=== PATIENT | female | born 1970 | race Hispanic/Latino ===

== ENCOUNTER 2017-10-14 12:32 | Inpatient (IN) | payer OTHER ==
[~2017-10-14] VITALS: Ht 160 cm; Wt 112.0 kg
[2017-10-14 12:57] LABS: BASOPHILS % (AUTO) 0.5 % (0.0-5.0); EOSINOPHILS % (AUTO) 0.7 % (0.0-8.0); HEMATOCRIT 30.1 % (36-48); MEAN CORPUSCULAR HEMOGLOBIN 31.5 pg (27.0-33.0); MEAN CORPUSCULAR HGB CONC 33.6 g/dL (32.0-36.0); MEAN CORPUSCULAR VOLUME 93.6 fL (79-99); MONOCYTES % (AUTO) 7.4 % (3.0-13.0); NEUTROPHILS % (AUTO) 82.3 % (40.0-77.0); PLATELET COUNT (AUTO) 303 K/uL (130-400); RED BLOOD CELL COUNT(AUTO) 3.21 MIL/uL (4.00-5.50); RED CELL DISTRIBUTION WIDTH 12.7 % (11.0-15.5)
[2017-10-14 13:04] LABS: LYMPHOCYTES % (AUTO) 9.1 % (21.0-51.0)
[2017-10-14 13:11] LABS: POTASSIUM 4.6 mmol/L (3.5-5.1)
[2017-10-14 13:16] LABS: APPEARANCE,URINE CLEAR (CLEAR); BILIRUBIN,URINE NEGATIVE (NEGATIVE); COLOR,URINE YELLOW (YELLOW); GLUCOSE, URINE (UA) NEGATIVE (NEGATIVE); KETONES,URINE NEGATIVE (NEGATIVE); LEUKOCYTE ESTERASE ,URINE NEGATIVE (NEGATIVE); NITRATE,URINE NEGATIVE (NEGATIVE); OCCULT BLOOD,URINE TRACE-LYSED (NEGATIVE); PH,URINE 5.5 (5.0-8.0); PROTEIN,URINE 100 (NEGATIVE); UROBILINOGEN,URINE 0.2 mg/dL (0.2-1.0)
[2017-10-14 13:16] LABS: ALBUMIN 2.4 g/dL (3.5-5.0); BILIRUBIN,TOTAL 0.2 mg/dL (0.2-1.0); TOTAL PROTEIN, SERUM 8.7 g/dL (6.0-8.3)
[2017-10-14 13:24] LABS: BACTERIA,URINE Rare /HPF (None Seen); RBC,URINE 0-1 /HPF (0-1); SQUAMOUS EPITHELIAL CELL,UR Few /LPF (0-2); WBC,URINE 0-1 /HPF (0-1)
[2017-10-14] MEDS ORDERED: AMPICILLIN SODIUM/SULBACTAM NA 1.5GM VIAL ONE (13:34)
[2017-10-14] MEDS ORDERED: VANCOMYCIN 1GM+NS 250ML 250 ML IV ONE (13:43)
[2017-10-14] MEDS ORDERED: TETANUS/DIPHTHERIA TOXOID [ADULT] 0.5 ML VIAL IM ONE (13:44)
[2017-10-14 15:21] VITALS: BP 165/67
[2017-10-14] MEDS ORDERED: ACETAMINOPHEN 325 MG TAB PO PRN (15:30)
[2017-10-14] MEDS ORDERED: HYDRALAZINE HCL 20 MG/ML VIAL IV PRN (15:30)
[2017-10-14] MEDS ORDERED: ONDANSETRON HCL 4 MG/2 ML VIAL IVP PRN (15:30)
[2017-10-14] MEDS: INSULIN HUMULIN R 100 UNIT/ML 3ML SQ SCH ×2 (16:30→21:00)
[2017-10-14] MEDS ORDERED: FURO40TA5 PO (16:34)
[2017-10-14] MEDS ORDERED: ASPI-1005 PO (16:34)
[2017-10-14] MEDS ORDERED: LISI-617 PO (16:34)
[2017-10-14] MEDS ORDERED: ATOR20TA65 PO (16:34)
[2017-10-14] MEDS ORDERED: CARV12.511 PO (16:34)
[2017-10-14] MEDS ORDERED: METF10004 PO (16:34)
[2017-10-14] MEDS ORDERED: SPIR25TA4 PO (16:34)
[2017-10-14] MEDS ORDERED: COMPOUND IV REFRIGERATED 1 EACH IVSOLN MISC PRN (17:00)
[2017-10-14] MEDS ORDERED: VANCOMYCIN PROTOCOL PER PHARMACY IV SCH (17:00)
[2017-10-14] MEDS: SODIUM CHLORIDE 0.9% 1000ML 1,000 ML IV SCH (17:30)
[2017-10-14] MEDS: MORPHINE SULFATE 2 MG/ML 1ML SYG IVP PRN ×2 (17:39→21:49)
[2017-10-14] MEDS: UNASYN 1.5GM+NS 100ML 100 ML IV SCH (18:35)
[2017-10-14 19:00] VITALS: BP 134/67
[2017-10-14 23:00] VITALS: BP 143/74
[2017-10-15] VITALS (21 sets, daily range): BP systolic 131–161; BP diastolic 53–85
[2017-10-15] MEDS: UNASYN 1.5GM+NS 100ML 100 ML IV SCH ×2 (00:21→05:56)
[2017-10-15] MEDS: MORPHINE SULFATE 2 MG/ML 1ML SYG IVP PRN ×3 (02:49→21:53)
[2017-10-15 05:41] LABS: BASOPHILS % (AUTO) 0.7 % (0.0-5.0); EOSINOPHILS % (AUTO) 1.7 % (0.0-8.0); HEMATOCRIT 26.9 % (36-48); LYMPHOCYTES % (AUTO) 14.7 % (21.0-51.0); MEAN CORPUSCULAR HEMOGLOBIN 31.9 pg (27.0-33.0); MEAN CORPUSCULAR HGB CONC 33.9 g/dL (32.0-36.0); MEAN CORPUSCULAR VOLUME 94.1 fL (79-99); MONOCYTES % (AUTO) 8.6 % (3.0-13.0); NEUTROPHILS % (AUTO) 74.3 % (40.0-77.0); PLATELET COUNT (AUTO) 278 K/uL (130-400); RED BLOOD CELL COUNT(AUTO) 2.86 MIL/uL (4.00-5.50); RED CELL DISTRIBUTION WIDTH 12.3 % (11.0-15.5); WHITE BLOOD COUNT (AUTO) 15.4 K/uL (4.8-10.8)
[2017-10-15 05:56] LABS: CREATININE 1.8 mg/dL (0.5-1.5); MAGNESIUM 1.8 mg/dL (1.80-2.40); POTASSIUM 4.4 mmol/L (3.5-5.1)
[2017-10-15] MEDS ORDERED: BUPIVACAINE/PF 0.5% 30ML VIAL ONE (06:11)
[2017-10-15] MEDS ORDERED: LIDOCAINE HCL 1% 20 ML VIAL ONE (06:11)
[2017-10-15 06:17] LABS: HEMOGLOBIN A1C 7.2 % (4.0-6.0)
[2017-10-15] MEDS: INSULIN HUMULIN R 100 UNIT/ML 3ML SQ SCH ×4 (06:47→21:00)
[2017-10-15] MEDS ORDERED: KETAMINE HCL 100 MG/ML 5ML VIAL IJ ONE (06:50)
[2017-10-15] MEDS ORDERED: MIDAZOLAM HCL 1 MG/ML 2ML VIAL ONE (06:58)
[2017-10-15] MEDS ORDERED: PROPOFOL 10 MG/ML 20ML VIAL IV ONE ×2 (06:59→08:14)
[2017-10-15] MEDS ORDERED: CEFEPIME 1GM+NS 50ML 50 ML IV SCH (09:00)
[2017-10-15] MEDS: PANTOPRAZOLE SODIUM 40 MG TABLET.DR PO SCH (09:32)
[2017-10-15] MEDS: VANCOMYCIN 1.5 GM in SODIUM CHLORIDE 0.9% 250 ML IV SCH (09:32)
[2017-10-15] MEDS: ENOXAPARIN SODIUM 30 MG/0.3 ML SQ SCH (09:32)
[2017-10-15] MEDS: CEFEPIME HCL 1 GM VIAL IVP SCH ×2 (09:32→17:05)
[2017-10-15] MEDS ORDERED: HYDROMORPHONE 1 MG/1 ML AMP IVP PRN (09:45)
[2017-10-15] MEDS: SODIUM CHLORIDE 0.9% 1000ML 1,000 ML IV SCH (11:39)
[2017-10-15] MEDS ORDERED: VANCOMYCIN HCL 1 GM VIAL IV SCH (13:30)
[2017-10-15] MEDS ORDERED: HYDROMORPHONE HCL 2 MG/ML VIAL IVP PRN (15:47)
[2017-10-16] VITALS (7 sets, daily range): BP systolic 149–207; BP diastolic 73–85
[2017-10-16] MEDS: CEFEPIME HCL 1 GM VIAL IVP SCH ×3 (00:55→17:36)
[2017-10-16] MEDS: MORPHINE SULFATE 2 MG/ML 1ML SYG IVP PRN ×2 (02:47→18:07)
[2017-10-16] MEDS: INSULIN HUMULIN R 100 UNIT/ML 3ML SQ SCH ×3 (06:33→21:00)
[2017-10-16] MEDS: SODIUM CHLORIDE 0.9% 1000ML 1,000 ML IV SCH (06:46)
[2017-10-16] MEDS: ENOXAPARIN SODIUM 30 MG/0.3 ML SQ SCH (09:10)
[2017-10-16] MEDS: VANCOMYCIN 1.5 GM in SODIUM CHLORIDE 0.9% 250 ML IV SCH (09:10)
[2017-10-16] MEDS: PANTOPRAZOLE SODIUM 40 MG TABLET.DR PO SCH (09:10)
[2017-10-17] VITALS: BP 144/70
[2017-10-17] MEDS: CEFEPIME HCL 1 GM VIAL IVP SCH ×3 (01:03→16:55)
[2017-10-17] MEDS: MORPHINE SULFATE 2 MG/ML 1ML SYG IVP PRN ×4 (01:09→23:36)
[2017-10-17] MEDS: SODIUM CHLORIDE 0.9% 1000ML 1,000 ML IV SCH ×2 (01:15→03:36)
[2017-10-17 04:00] VITALS: BP 142/68
[2017-10-17 04:33] LABS: HEMATOCRIT 26.9 % (36-48); MEAN CORPUSCULAR HEMOGLOBIN 31.2 pg (27.0-33.0); MEAN CORPUSCULAR HGB CONC 33.2 g/dL (32.0-36.0); MEAN CORPUSCULAR VOLUME 93.8 fL (79-99); PLATELET COUNT (AUTO) 279 K/uL (130-400); RED BLOOD CELL COUNT(AUTO) 2.86 MIL/uL (4.00-5.50); RED CELL DISTRIBUTION WIDTH 12.3 % (11.0-15.5); WHITE BLOOD COUNT (AUTO) 13.6 K/uL (4.8-10.8)
[2017-10-17 04:51] LABS: CREATININE 1.6 mg/dL (0.5-1.5); POTASSIUM 4.4 mmol/L (3.5-5.1)
[2017-10-17] MEDS: INSULIN HUMULIN R 100 UNIT/ML 3ML SQ SCH ×4 (05:22→21:00)
[2017-10-17] MEDS: PANTOPRAZOLE SODIUM 40 MG TABLET.DR PO SCH (08:58)
[2017-10-17] MEDS: VANCOMYCIN 1.5 GM in SODIUM CHLORIDE 0.9% 250 ML IV SCH (08:58)
[2017-10-17] MEDS: ENOXAPARIN SODIUM 30 MG/0.3 ML SQ SCH (08:59)
[2017-10-17 11:40] VITALS: BP 154/72
[2017-10-17 16:00] VITALS: BP 153/75
[2017-10-17 19:29] VITALS: BP 156/71
[2017-10-17] MEDS: ATORVASTATIN CALCIUM 20 MG TABLET PO SCH (23:32)
[2017-10-17] MEDS: CARVEDILOL 12.5 MG TABLET PO SCH (23:33)
[2017-10-17 23:52] VITALS: BP 140/72
[2017-10-18] MEDS: SODIUM CHLORIDE 0.9% 1000ML 1,000 ML IV SCH ×4 (00:33→19:46)
[2017-10-18] MEDS: CEFEPIME HCL 1 GM VIAL IVP SCH ×2 (03:35→10:28)
[2017-10-18 04:25] VITALS: BP 155/73
[2017-10-18 05:25] LABS: BASOPHILS % (AUTO) 0.5 % (0.0-5.0); EOSINOPHILS % (AUTO) 2.4 % (0.0-8.0); HEMATOCRIT 25.1 % (36-48); LYMPHOCYTES % (AUTO) 13.2 % (21.0-51.0); MEAN CORPUSCULAR HEMOGLOBIN 32.7 pg (27.0-33.0); MEAN CORPUSCULAR HGB CONC 34.9 g/dL (32.0-36.0); MEAN CORPUSCULAR VOLUME 93.9 fL (79-99); MONOCYTES % (AUTO) 6.9 % (3.0-13.0); PLATELET COUNT (AUTO) 300 K/uL (130-400); RED BLOOD CELL COUNT(AUTO) 2.67 MIL/uL (4.00-5.50); RED CELL DISTRIBUTION WIDTH 12.6 % (11.0-15.5)
[2017-10-18 05:41] LABS: CREATININE 1.6 mg/dL (0.5-1.5); POTASSIUM 4.3 mmol/L (3.5-5.1)
[2017-10-18] MEDS: MORPHINE SULFATE 2 MG/ML 1ML SYG IVP PRN (06:50)
[2017-10-18] MEDS: INSULIN HUMULIN R 100 UNIT/ML 3ML SQ SCH ×4 (06:51→21:00)
[2017-10-18 08:00] VITALS: BP 152/69
[2017-10-18 10:19] LABS: INR 0.94 (0.85-1.15); PROTHROMBIN TIME 9.9 SEC (9.6-11.6)
[2017-10-18] MEDS: ASPIRIN 81MG TAB.CHEW PO SCH (10:26)
[2017-10-18] MEDS: CARVEDILOL 12.5 MG TABLET PO SCH ×2 (10:26→20:56)
[2017-10-18] MEDS: ENOXAPARIN SODIUM 30 MG/0.3 ML SQ SCH (10:27)
[2017-10-18] MEDS: PANTOPRAZOLE SODIUM 40 MG TABLET.DR PO SCH (10:27)
[2017-10-18] MEDS: VANCOMYCIN 1.5 GM in SODIUM CHLORIDE 0.9% 250 ML IV SCH (10:28)
[2017-10-18 11:00] VITALS: BP 151/75
[2017-10-18 16:00] VITALS: BP 165/76
[2017-10-18] MEDS: HYDROCODONE/ACETAMINOPHEN 5/325 MG TAB PO PRN (16:28)
[2017-10-18] MEDS: LEVOFLOXACIN 750 MG TABLET PO SCH (18:34)
[2017-10-18 20:00] VITALS: BP 150/75
[2017-10-18] MEDS: ATORVASTATIN CALCIUM 20 MG TABLET PO SCH (20:56)
[2017-10-18] MEDS: LACTULOSE 20 GM/30 ML UDCUP PO PRN (21:23)
[2017-10-19] VITALS (22 sets, daily range): BP systolic 104–176; BP diastolic 49–105
[2017-10-19] MEDS: SODIUM CHLORIDE 0.9% 1000ML 1,000 ML IV SCH ×2 (03:54→05:09)
[2017-10-19] MEDS: INSULIN HUMULIN R 100 UNIT/ML 3ML SQ SCH ×4 (06:33→20:20)
[2017-10-19 08:00] LABS: HEMATOCRIT 26.9 % (36-48); MEAN CORPUSCULAR HGB CONC 33.2 g/dL (32.0-36.0); MEAN CORPUSCULAR VOLUME 93.6 fL (79-99); PLATELET COUNT (AUTO) 327 K/uL (130-400); RED BLOOD CELL COUNT(AUTO) 2.88 MIL/uL (4.00-5.50); RED CELL DISTRIBUTION WIDTH 12.6 % (11.0-15.5); WHITE BLOOD COUNT (AUTO) 12.9 K/uL (4.8-10.8)
[2017-10-19 08:08] LABS: CREATININE 1.4 mg/dL (0.5-1.5); POTASSIUM 4.5 mmol/L (3.5-5.1)
[2017-10-19 08:27] LABS: EOSINOPHILS % (MANUAL) 3 % (1-6); LYMPHOCYTES % (MANUAL) 15 % (22-44); MAN.DIFF COMMENT-IMPRESSION MANUAL DIFFERENTIAL; MONOCYTES % (MANUAL) 2 % (2-9); PLATELET MORPHOLOGY COMMENT ADEQUATE; SEGMENTED NEUTROPHILS % 80 % (40-70)
[2017-10-19] MEDS: ENOXAPARIN SODIUM 30 MG/0.3 ML SQ SCH (08:28)
[2017-10-19] MEDS: ASPIRIN 81MG TAB.CHEW PO SCH (08:28)
[2017-10-19] MEDS: PANTOPRAZOLE SODIUM 40 MG TABLET.DR PO SCH (09:00)
[2017-10-19] MEDS: CARVEDILOL 12.5 MG TABLET PO SCH ×2 (09:26→20:19)
[2017-10-19] MEDS ORDERED: LIDOCAINE HCL 2% 20ML ONE (12:21)
[2017-10-19] MEDS ORDERED: HEPARIN SODIUM 1000UNIT/ML 10ML VIAL ONE ×2 (12:21→13:19)
[2017-10-19] MEDS ORDERED: NITROGLYCERIN 5 MG/ML 10 ML VIAL IV ONE (12:21)
[2017-10-19] MEDS ORDERED: ISOVUE-300 100 ML VIAL IV ONE ×2 (12:21→13:23)
[2017-10-19] MEDS ORDERED: MORPHINE SULFATE 2 MG/ML 1ML SYG ONE (13:51)
[2017-10-19] MEDS ORDERED: LABETALOL HCL 5 MG/ML 20ML VIAL IV ONE (13:54)
[2017-10-19] MEDS ORDERED: ASPIRIN 325MG EC TAB 325 MG TABLET.DR PO ONE (13:56)
[2017-10-19] MEDS ORDERED: CLOPIDOGREL BISULFATE 300 MG TAB ONE (13:56)
[2017-10-19] MEDS ORDERED: NICARDIPINE HCL 25 MG/10 ML ML IV ONE (13:57)
[2017-10-19] MEDS ORDERED: SODIUM CHLORIDE 0.9% 1000ML 1,000 ML IV SCH (14:02)
[2017-10-19] MEDS ORDERED: NITROGLYCERIN 50 MG/D5% WATER 1 BOT IV PRN (14:15)
[2017-10-19] MEDS ORDERED: CLOPIDOGREL BISULFATE 300 MG TAB PO SCH (14:15)
[2017-10-19] MEDS: MORPHINE SULFATE 2 MG/ML 1ML SYG IVP PRN (16:01)
[2017-10-19] MEDS ORDERED: NICARDIPINE HCL 100 MG in SODIUM CHLORIDE 0.9% 60 ML IV SCH (16:45)
[2017-10-19] MEDS: LISINOPRIL 10 MG TABLET PO SCH (20:18)
[2017-10-19] MEDS: HYDROCODONE/ACETAMINOPHEN 5/325 MG TAB PO PRN (20:19)
[2017-10-19] MEDS: ATORVASTATIN CALCIUM 20 MG TABLET PO SCH (20:19)
[2017-10-20] VITALS (12 sets, daily range): BP systolic 108–160; BP diastolic 49–78
[2017-10-20 03:43] LABS: HEMATOCRIT 25.3 % (36-48); MEAN CORPUSCULAR HEMOGLOBIN 32.5 pg (27.0-33.0); MEAN CORPUSCULAR HGB CONC 34.8 g/dL (32.0-36.0); MEAN CORPUSCULAR VOLUME 93.2 fL (79-99); PLATELET COUNT (AUTO) 322 K/uL (130-400); RED BLOOD CELL COUNT(AUTO) 2.71 MIL/uL (4.00-5.50); RED CELL DISTRIBUTION WIDTH 12.5 % (11.0-15.5); WHITE BLOOD COUNT (AUTO) 13.9 K/uL (4.8-10.8)
[2017-10-20 04:00] LABS: CREATININE 1.5 mg/dL (0.5-1.5); POTASSIUM 4.6 mmol/L (3.5-5.1)
[2017-10-20] MEDS: INSULIN HUMULIN R 100 UNIT/ML 3ML SQ SCH ×4 (05:20→21:00)
[2017-10-20] MEDS: ASPIRIN 81MG TAB.CHEW PO SCH ×2 (09:00→09:14)
[2017-10-20] MEDS: PANTOPRAZOLE SODIUM 40 MG TABLET.DR PO SCH (09:13)
[2017-10-20] MEDS: LISINOPRIL 10 MG TABLET PO SCH ×2 (09:14→22:50)
[2017-10-20] MEDS: CLOPIDOGREL BISULFATE 75 MG TAB PO SCH (09:14)
[2017-10-20] MEDS: CARVEDILOL 12.5 MG TABLET PO SCH ×2 (09:15→22:49)
[2017-10-20] MEDS: ENOXAPARIN SODIUM 30 MG/0.3 ML SQ SCH (09:18)
[2017-10-20] MEDS: LEVOFLOXACIN 750 MG TABLET PO SCH (17:11)
[2017-10-20] MEDS: HYDROCODONE/ACETAMINOPHEN 5/325 MG TAB PO PRN (17:12)
[2017-10-20] MEDS ORDERED: SODIUM CHLORIDE 0.9% 1000ML 1,000 ML IV PRN (19:45)
[2017-10-20] MEDS ORDERED: 0.9% SODIUM CHLORIDE 250 ML IV BAG IV PRN (19:45)
[2017-10-20] MEDS ORDERED: ALBUMIN (HUMAN) 25% 100 ML IV PRN (19:45)
[2017-10-20] MEDS: ATORVASTATIN CALCIUM 20 MG TABLET PO SCH (22:48)
[2017-10-20] MEDS: MORPHINE SULFATE 2 MG/ML 1ML SYG IVP PRN (23:00)
[2017-10-21] VITALS (22 sets, daily range): BP systolic 131–175; BP diastolic 51–81
[2017-10-21 03:48] LABS: HEMATOCRIT 24.2 % (36-48); MEAN CORPUSCULAR HEMOGLOBIN 31.6 pg (27.0-33.0); MEAN CORPUSCULAR HGB CONC 34.2 g/dL (32.0-36.0); MEAN CORPUSCULAR VOLUME 92.6 fL (79-99); PLATELET COUNT (AUTO) 315 K/uL (130-400); RED BLOOD CELL COUNT(AUTO) 2.62 MIL/uL (4.00-5.50); RED CELL DISTRIBUTION WIDTH 12.5 % (11.0-15.5); WHITE BLOOD COUNT (AUTO) 12.6 K/uL (4.8-10.8)
[2017-10-21 04:06] LABS: ALBUMIN 1.8 g/dL (3.5-5.0); BILIRUBIN,TOTAL 0.2 mg/dL (0.2-1.0); CREATININE 1.7 mg/dL (0.5-1.5); POTASSIUM 4.3 mmol/L (3.5-5.1); TOTAL PROTEIN, SERUM 7.2 g/dL (6.0-8.3)
[2017-10-21] MEDS: INSULIN HUMULIN R 100 UNIT/ML 3ML SQ SCH ×4 (06:05→20:32)
[2017-10-21] MEDS: ASPIRIN 81MG TAB.CHEW PO SCH ×2 (09:00→13:30)
[2017-10-21] MEDS ORDERED: LIDOCAINE HCL 1% 20 ML VIAL ONE (09:01)
[2017-10-21] MEDS ORDERED: BUPIVACAINE/PF 0.5% 30ML VIAL ONE (09:01)
[2017-10-21] MEDS ORDERED: SUCCINYLCHOLINE 200MG/10ML SYR ONE ×2 (09:25→10:16)
[2017-10-21] MEDS ORDERED: LIDOCAINE PF 2% 5ML ABBOJECT ONE (09:25)
[2017-10-21] MEDS ORDERED: GLYCOPYRROLATE 0.2 MG/ML 5 ML VIAL ONE (09:25)
[2017-10-21] MEDS ORDERED: ONDANSETRON HCL 4 MG/2 ML VIAL ONE ×2 (09:25→10:16)
[2017-10-21] MEDS ORDERED: DEXAMETHASONE SOD PHOSPHATE 10MG/ML 1ML VIAL ONE ×2 (09:25→10:16)
[2017-10-21] MEDS ORDERED: MIDAZOLAM HCL 1 MG/ML 2ML VIAL ONE (09:26)
[2017-10-21] MEDS ORDERED: FENTANYL CITRATE PF 50 MCG/1 ML 2ML VIAL ONE ×2 (09:26→10:25)
[2017-10-21] MEDS ORDERED: PROPOFOL 10 MG/ML 20ML VIAL IV ONE (09:26)
[2017-10-21] MEDS ORDERED: ROCURONIUM BROMIDE 10MG/1ML 5ML VL ONE (10:16)
[2017-10-21] MEDS: PANTOPRAZOLE SODIUM 40 MG TABLET.DR PO SCH (13:31)
[2017-10-21] MEDS: LISINOPRIL 10 MG TABLET PO SCH ×2 (13:31→20:29)
[2017-10-21] MEDS: CARVEDILOL 12.5 MG TABLET PO SCH ×2 (13:31→20:30)
[2017-10-21] MEDS: CLOPIDOGREL BISULFATE 75 MG TAB PO SCH (13:31)
[2017-10-21] MEDS: ENOXAPARIN SODIUM 30 MG/0.3 ML SQ SCH (13:36)
[2017-10-21] MEDS: HYDROMORPHONE 1 MG/1 ML AMP IVP PRN (19:54)
[2017-10-21] MEDS: ATORVASTATIN CALCIUM 20 MG TABLET PO SCH (20:29)
[2017-10-22] MEDS: HYDROMORPHONE 1 MG/1 ML AMP IVP PRN (01:20)
[2017-10-22 04:00] VITALS: BP 149/73
[2017-10-22 04:08] LABS: HEMATOCRIT 23.9 % (36-48); MEAN CORPUSCULAR HGB CONC 33.7 g/dL (32.0-36.0); PLATELET COUNT (AUTO) 305 K/uL (130-400); RED BLOOD CELL COUNT(AUTO) 2.59 MIL/uL (4.00-5.50); RED CELL DISTRIBUTION WIDTH 12.7 % (11.0-15.5); WHITE BLOOD COUNT (AUTO) 19.3 K/uL (4.8-10.8)
[2017-10-22 04:30] LABS: ALBUMIN 2.1 g/dL (3.5-5.0); BILIRUBIN,TOTAL 0.2 mg/dL (0.2-1.0); CREATININE 1.5 mg/dL (0.5-1.5); POTASSIUM 4.6 mmol/L (3.5-5.1); TOTAL PROTEIN, SERUM 7.5 g/dL (6.0-8.3)
[2017-10-22] MEDS: INSULIN HUMULIN R 100 UNIT/ML 3ML SQ SCH ×3 (06:12→17:16)
[2017-10-22 07:37] VITALS: BP 149/69
[2017-10-22] MEDS: ASPIRIN 81MG TAB.CHEW PO SCH ×2 (08:32→08:35)
[2017-10-22] MEDS: LISINOPRIL 10 MG TABLET PO SCH ×2 (08:32→20:20)
[2017-10-22] MEDS: CARVEDILOL 12.5 MG TABLET PO SCH ×2 (08:32→20:20)
[2017-10-22] MEDS: PANTOPRAZOLE SODIUM 40 MG TABLET.DR PO SCH (08:32)
[2017-10-22] MEDS: CLOPIDOGREL BISULFATE 75 MG TAB PO SCH (08:32)
[2017-10-22] MEDS: ENOXAPARIN SODIUM 30 MG/0.3 ML SQ SCH (08:35)
[2017-10-22] MEDS: HYDROCODONE/ACETAMINOPHEN 5/325 MG TAB PO PRN (10:52)
[2017-10-22 11:37] VITALS: BP 149/61
[2017-10-22 16:11] VITALS: BP 132/56
[2017-10-22] MEDS: LEVOFLOXACIN 750 MG TABLET PO SCH (17:20)
[2017-10-22 19:45] VITALS: BP 157/69
[2017-10-22] MEDS: ATORVASTATIN CALCIUM 20 MG TABLET PO SCH (20:20)
[2017-10-23] VITALS (7 sets, daily range): BP systolic 132–165; BP diastolic 57–70
[2017-10-23] MEDS: HYDROMORPHONE 1 MG/1 ML AMP IVP PRN ×3 (00:34→20:38)
[2017-10-23 03:55] LABS: MEAN CORPUSCULAR HEMOGLOBIN 31.4 pg (27.0-33.0); MEAN CORPUSCULAR HGB CONC 33.9 g/dL (32.0-36.0); MEAN CORPUSCULAR VOLUME 92.7 fL (79-99); PLATELET COUNT (AUTO) 320 K/uL (130-400); RED BLOOD CELL COUNT(AUTO) 2.27 MIL/uL (4.00-5.50); RED CELL DISTRIBUTION WIDTH 12.8 % (11.0-15.5); WHITE BLOOD COUNT (AUTO) 16.3 K/uL (4.8-10.8)
[2017-10-23 04:39] LABS: BAND NEUTROPHILS % (MANUAL) 2 % (0-2); LYMPHOCYTES % (MANUAL) 10 % (22-44); MAN.DIFF COMMENT-IMPRESSION MANUAL DIFFERENTIAL; MONOCYTES % (MANUAL) 4 % (2-9); SEGMENTED NEUTROPHILS % 84 % (40-70)
[2017-10-23 04:40] LABS: PLATELET MORPHOLOGY COMMENT ADEQUATE
[2017-10-23] MEDS: INSULIN HUMULIN R 100 UNIT/ML 3ML SQ SCH ×4 (05:59→21:00)
[2017-10-23] MEDS: ASPIRIN 81MG TAB.CHEW PO SCH ×2 (09:00)
[2017-10-23] MEDS: PANTOPRAZOLE SODIUM 40 MG TABLET.DR PO SCH (09:00)
[2017-10-23] MEDS: SODIUM CHLORIDE 0.9% 1000ML 1,000 ML IV SCH (09:30)
[2017-10-23] MEDS: AMLODIPINE BESYLATE 5 MG TAB PO SCH (09:57)
[2017-10-23] MEDS: CARVEDILOL 12.5 MG TABLET PO SCH ×2 (09:57→23:03)
[2017-10-23 10:15] LABS: HEMOGLOBIN A1C 7.1 % (4.0-6.0)
[2017-10-23 13:49] LABS: PROTHROMBIN TIME 10.5 SEC (9.6-11.6)
[2017-10-23] MEDS: ATORVASTATIN CALCIUM 20 MG TABLET PO SCH (23:03)
[2017-10-24] VITALS (28 sets, daily range): BP systolic 99–166; BP diastolic 38–81
[2017-10-24] MEDS: SODIUM CHLORIDE 0.9% 1000ML 1,000 ML IV SCH ×3 (05:42→08:02)
[2017-10-24] MEDS: INSULIN HUMULIN R 100 UNIT/ML 3ML SQ SCH ×4 (06:26→22:47)
[2017-10-24 06:47] LABS: BASOPHILS % (AUTO) 0.6 % (0.0-5.0); EOSINOPHILS % (AUTO) 1.5 % (0.0-8.0); HEMATOCRIT 22.1 % (36-48); LYMPHOCYTES % (AUTO) 12.5 % (21.0-51.0); MEAN CORPUSCULAR HEMOGLOBIN 31.4 pg (27.0-33.0); MEAN CORPUSCULAR HGB CONC 33.8 g/dL (32.0-36.0); MEAN CORPUSCULAR VOLUME 92.9 fL (79-99); MONOCYTES % (AUTO) 8.7 % (3.0-13.0); NEUTROPHILS % (AUTO) 76.7 % (40.0-77.0); NUCLEATED RED BLOOD CELLS 0.1 % (0.0-0.19); PLATELET COUNT (AUTO) 322 K/uL (130-400); RED BLOOD CELL COUNT(AUTO) 2.38 MIL/uL (4.00-5.50); RED CELL DISTRIBUTION WIDTH 12.9 % (11.0-15.5); WHITE BLOOD COUNT (AUTO) 12.7 K/uL (4.8-10.8)
[2017-10-24] MEDS ORDERED: PROPOFOL 10 MG/ML 20ML VIAL IV ONE (06:55)
[2017-10-24] MEDS ORDERED: ONDANSETRON HCL 4 MG/2 ML VIAL ONE (06:55)
[2017-10-24] MEDS ORDERED: DEXAMETHASONE SOD PHOSPHATE 10MG/ML 1ML VIAL ONE (06:55)
[2017-10-24] MEDS ORDERED: GLYCOPYRROLATE 0.2 MG/ML 5 ML VIAL ONE ×2 (06:55→09:22)
[2017-10-24] MEDS ORDERED: SUCCINYLCHOLINE 200MG/10ML SYR ONE (06:55)
[2017-10-24] MEDS ORDERED: MIDAZOLAM HCL 1 MG/ML 2ML VIAL ONE (06:55)
[2017-10-24] MEDS ORDERED: LIDOCAINE PF 2% 5ML ABBOJECT ONE (06:55)
[2017-10-24] MEDS ORDERED: FENTANYL CITRATE PF 50 MCG/1 ML 2ML VIAL ONE ×3 (06:56→09:14)
[2017-10-24 06:57] LABS: CREATININE 1.4 mg/dL (0.5-1.5); POTASSIUM 5.1 mmol/L (3.5-5.1)
[2017-10-24] MEDS ORDERED: EPHEDRINE SULFATE 50 MG/ML AMPULE ONE (07:04)
[2017-10-24] MEDS: CARVEDILOL 12.5 MG TABLET PO SCH ×2 (07:48→22:56)
[2017-10-24] MEDS ORDERED: CEFAZOLIN SODIUM 1 GM VIAL ONE (08:08)
[2017-10-24] MEDS ORDERED: BACITRACIN 50,000 UNIT VIAL ONE (08:09)
[2017-10-24] MEDS ORDERED: HEPARIN SODIUM 1000UNIT/ML 10ML VIAL ONE ×3 (08:43→09:23)
[2017-10-24] MEDS ORDERED: THROMBIN-JMI 5000 UNIT/VIAL TP ONE (08:43)
[2017-10-24] MEDS ORDERED: ROCURONIUM BROMIDE 10MG/1ML 5ML VL ONE (08:54)
[2017-10-24] MEDS: ASPIRIN 81MG TAB.CHEW PO SCH ×2 (09:00)
[2017-10-24 09:17] LABS: ABG BASE EXCESS -3.9 mmol/L (-2.0-3.0); ABG HCO3 21.1 mmol/L (21.0-28.0); ABG OXYGEN SATURATION 98.9 % (95.0-99.0); ABG PCO2 38 mmHg (32-45)
[2017-10-24] MEDS ORDERED: NEOSTIGMINE 5MG/5ML SYR IV ONE (09:22)
[2017-10-24] MEDS ORDERED: ARTIFICIAL TEARS 3.5 GM OINTMENT ONE (09:23)
[2017-10-24] MEDS ORDERED: EPINEPHRINE 1 MG/ML AMPULE ONE (09:37)
[2017-10-24] MEDS ORDERED: OCTYL 2-CYANOACRYLATE 1 EACH TP ONE (09:45)
[2017-10-24] MEDS: PANTOPRAZOLE SODIUM 40 MG TABLET.DR PO SCH (18:29)
[2017-10-24] MEDS: AMLODIPINE BESYLATE 5 MG TAB PO SCH (18:29)
[2017-10-24] MEDS: LEVOFLOXACIN 750 MG TABLET PO SCH (18:29)
[2017-10-24] MEDS: ATORVASTATIN CALCIUM 20 MG TABLET PO SCH (22:55)
[2017-10-25 03:58] VITALS: BP 151/63
[2017-10-25 04:28] LABS: BASOPHILS % (AUTO) 0.2 % (0.0-5.0); HEMATOCRIT 25.8 % (36-48); LYMPHOCYTES % (AUTO) 6.9 % (21.0-51.0); MEAN CORPUSCULAR HEMOGLOBIN 30.8 pg (27.0-33.0); MEAN CORPUSCULAR HGB CONC 34.2 g/dL (32.0-36.0); MEAN CORPUSCULAR VOLUME 89.9 fL (79-99); MONOCYTES % (AUTO) 6.2 % (3.0-13.0); NEUTROPHILS % (AUTO) 86.7 % (40.0-77.0); PLATELET COUNT (AUTO) 328 K/uL (130-400); RED BLOOD CELL COUNT(AUTO) 2.86 MIL/uL (4.00-5.50); RED CELL DISTRIBUTION WIDTH 13.8 % (11.0-15.5); WHITE BLOOD COUNT (AUTO) 19.9 K/uL (4.8-10.8)
[2017-10-25 04:49] LABS: CREATININE 1.4 mg/dL (0.5-1.5); POTASSIUM 4.9 mmol/L (3.5-5.1)
[2017-10-25] MEDS: HYDROCODONE/ACETAMINOPHEN 5/325 MG TAB PO PRN ×2 (05:08→20:40)
[2017-10-25] MEDS: INSULIN HUMULIN R 100 UNIT/ML 3ML SQ SCH ×4 (06:14→20:40)
[2017-10-25 07:00] VITALS: BP 133/61
[2017-10-25] MEDS: AMLODIPINE BESYLATE 5 MG TAB PO SCH (08:36)
[2017-10-25] MEDS: PANTOPRAZOLE SODIUM 40 MG TABLET.DR PO SCH (08:37)
[2017-10-25] MEDS: CARVEDILOL 12.5 MG TABLET PO SCH ×2 (08:37→20:39)
[2017-10-25] MEDS: CLOPIDOGREL BISULFATE 75 MG TAB PO SCH (08:37)
[2017-10-25] MEDS: ASPIRIN 81MG TAB.CHEW PO SCH (08:37)
[2017-10-25 11:00] VITALS: BP 137/60
[2017-10-25 16:00] VITALS: BP 139/61
[2017-10-25] MEDS: LACTULOSE 20 GM/30 ML UDCUP PO PRN (17:37)
[2017-10-25 19:39] VITALS: BP 145/73
[2017-10-25] MEDS: ATORVASTATIN CALCIUM 20 MG TABLET PO SCH (20:39)
[2017-10-25] MEDS: SODIUM CHLORIDE 0.9% 1000ML 1,000 ML IV SCH (22:55)
[2017-10-25 23:22] VITALS: BP 121/63
[2017-10-26 03:57] VITALS: BP 126/59
[2017-10-26] MEDS: INSULIN HUMULIN R 100 UNIT/ML 3ML SQ SCH ×4 (06:17→20:55)
[2017-10-26 07:00] VITALS: BP 132/67
[2017-10-26] MEDS: CLOPIDOGREL BISULFATE 75 MG TAB PO SCH (09:06)
[2017-10-26] MEDS: AMLODIPINE BESYLATE 5 MG TAB PO SCH (09:06)
[2017-10-26] MEDS: PANTOPRAZOLE SODIUM 40 MG TABLET.DR PO SCH (09:07)
[2017-10-26] MEDS: CARVEDILOL 12.5 MG TABLET PO SCH ×2 (09:07→20:45)
[2017-10-26] MEDS: ASPIRIN 81MG TAB.CHEW PO SCH (09:07)
[2017-10-26 11:00] VITALS: BP 137/70
[2017-10-26 16:00] VITALS: BP 138/67
[2017-10-26] MEDS: LEVOFLOXACIN 750 MG TABLET PO SCH (17:40)
[2017-10-26 19:34] VITALS: BP 140/72
[2017-10-26] MEDS: HYDROCODONE/ACETAMINOPHEN 5/325 MG TAB PO PRN (20:46)
[2017-10-26] MEDS: ATORVASTATIN CALCIUM 20 MG TABLET PO SCH (20:51)
[2017-10-26 23:55] VITALS: BP 129/62
[2017-10-27] MEDS: SODIUM CHLORIDE 0.9% 1000ML 1,000 ML IV SCH ×2 (00:24→13:30)
[2017-10-27] MEDS: HYDROCODONE/ACETAMINOPHEN 5/325 MG TAB PO PRN (00:25)
[2017-10-27 03:52] VITALS: BP 138/64
[2017-10-27 04:05] LABS: HEMATOCRIT 22.7 % (36-48); MEAN CORPUSCULAR HEMOGLOBIN 30.8 pg (27.0-33.0); MEAN CORPUSCULAR HGB CONC 33.5 g/dL (32.0-36.0); PLATELET COUNT (AUTO) 264 K/uL (130-400); RED BLOOD CELL COUNT(AUTO) 2.47 MIL/uL (4.00-5.50); RED CELL DISTRIBUTION WIDTH 14.3 % (11.0-15.5); WHITE BLOOD COUNT (AUTO) 11.2 K/uL (4.8-10.8)
[2017-10-27 04:19] LABS: CREATININE 1.5 mg/dL (0.5-1.5); MAGNESIUM 1.6 mg/dL (1.80-2.40); POTASSIUM 4.3 mmol/L (3.5-5.1)
[2017-10-27] MEDS: INSULIN HUMULIN R 100 UNIT/ML 3ML SQ SCH ×2 (06:34→11:30)
[2017-10-27 07:00] VITALS: BP 139/69
[2017-10-27] MEDS: AMLODIPINE BESYLATE 5 MG TAB PO SCH (09:38)
[2017-10-27] MEDS: ASPIRIN 81MG TAB.CHEW PO SCH (09:38)
[2017-10-27] MEDS: CARVEDILOL 12.5 MG TABLET PO SCH (09:39)
[2017-10-27] MEDS: CLOPIDOGREL BISULFATE 75 MG TAB PO SCH (09:39)
[2017-10-27] MEDS: PANTOPRAZOLE SODIUM 40 MG TABLET.DR PO SCH (09:39)
[2017-10-27 11:00] VITALS: BP 140/66
[2017-10-27] MEDS ORDERED: MAGNESIUM 2GM PREMIX 50ML 50 ML IV SCH (14:15)
[2017-10-27] MEDS ORDERED: LEVO500T2 PO (14:53)
== END 2017-10-27 22:00 | disposition home or self-care (01) | DRG 853 ==
LOC: EDH 12:32 → 3CH 12:33 → 2BH 10-19 15:03 → 2AH 10-20 18:05
PROVIDERS: ADMIT Family Medicine; ATTEND Family Medicine
PROC: 0Y6Q0Z0 Detachment at Left 1st Toe, Complete, Open Approach (ICD-10-PCS; principal; 2017-10-15 07:23)
PROC: 047S3ZZ Dilation of Left Posterior Tibial Artery, Percutaneous Approach (ICD-10-PCS; 2017-10-19)
PROC: B4101ZZ Fluoroscopy of Abdominal Aorta using Low Osmolar Contrast (ICD-10-PCS; 2017-10-19)
PROC: 0Y6N0ZB Detachment at Left Foot, Partial 2nd Ray, Open Approach (ICD-10-PCS; 2017-10-21)
PROC: 30233N1 Transfusion of Nonautologous Red Blood Cells into Peripheral Vein, Percutaneous Approach (ICD-10-PCS; 2017-10-21)
PROC: 04QK0ZZ Repair Right Femoral Artery, Open Approach (ICD-10-PCS; 2017-10-24)
DX: A41.9 Sepsis, unspecified organism (principal); M72.6 Necrotizing fasciitis; A48.0 Gas gangrene; E11.22 Type 2 diabetes mellitus with diabetic chronic kidney disease; N17.9 Acute kidney failure, unspecified; E46 Unspecified protein-calorie malnutrition; D62 Acute posthemorrhagic anemia; E11.51 Type 2 diabetes mellitus with diabetic peripheral angiopathy without gangrene; N18.3 Chronic kidney disease, stage 3 (moderate); E11.52 Type 2 diabetes mellitus with diabetic peripheral angiopathy with gangrene; I42.9 Cardiomyopathy, unspecified; I13.0 Hypertensive heart and chronic kidney disease with heart failure and stage 1 through stage 4 chronic kidney disease, or unspecified chronic kidney disease; M86.9 Osteomyelitis, unspecified; E87.1 Hypo-osmolality and hyponatremia; I42.0 Dilated cardiomyopathy; Z68.41 Body mass index [BMI] 40.0-44.9, adult; D63.8 Anemia in other chronic diseases classified elsewhere; E11.65 Type 2 diabetes mellitus with hyperglycemia; E11.69 Type 2 diabetes mellitus with other specified complication; E66.01 Morbid (severe) obesity due to excess calories; E78.5 Hyperlipidemia, unspecified; E83.42 Hypomagnesemia; I50.9 Heart failure, unspecified; I72.4 Aneurysm of artery of lower extremity; I72.8 Aneurysm of other specified arteries; L03.032 Cellulitis of left toe; Z98.61 Coronary angioplasty status; Z95.820 Peripheral vascular angioplasty status with implants and grafts; Z83.3 Family history of diabetes mellitus
CPT/HCPCS: 36415; 37226; 71045; 73620; 75630; 76882; 80048; 80053; 80061; 80202; 81001; 82330; 82435; 82803; 82947; 82948; 83036; 83605; 83735; 84132; 84295; 84703; 85018; 85025; 85027; 85610; 85730; 86850; 86900; 86901; 86922; 87040; 87070; 87076; 87205; 88304; 88305; 88309; 88311; 90714; 93005; 93306; 93926; 99291; A4218; A4606; C1725; C1769; C1893; C1894; J0171; J0295; J0330; J0360; J0690; J0692; J1100; J1170; J1644; J1650; J1815; J2001; J2250; J2405; J2704; J2710; J3010; J3370; J3475; J3490; J7030; J7040; P9016; Q9967

== ENCOUNTER 2017-11-28 13:24 | Inpatient (IN) | payer OTHER ==
[~2017-11-28] VITALS: Ht 160 cm; Wt 103.0 kg
[~2017-11-28 13:24] MED LIST: ASPI-1005 PO; ATOR20TA65 PO; CARV12.511 PO; FURO40TA5 PO; LEVO500T2 PO; LISI-617 PO; MEROPENEM 500 MG VIAL IVP SCH; METF10004 PO; SPIR25TA4 PO; VANCOMYCIN 1GM+NS 250ML 250 ML IV SCH
[2017-11-28 14:17] LABS: BASOPHILS % (AUTO) 0.4 % (0.0-5.0); EOSINOPHILS % (AUTO) 0.7 % (0.0-8.0); HEMATOCRIT 26.1 % (36-48); LYMPHOCYTES % (AUTO) 11.3 % (21.0-51.0); MEAN CORPUSCULAR HEMOGLOBIN 30.1 pg (27.0-33.0); MEAN CORPUSCULAR HGB CONC 33.4 g/dL (32.0-36.0); MEAN CORPUSCULAR VOLUME 90.2 fL (79-99); NEUTROPHILS % (AUTO) 79.6 % (40.0-77.0); PLATELET COUNT (AUTO) 228 K/uL (130-400); RED BLOOD CELL COUNT(AUTO) 2.89 MIL/uL (4.00-5.50); RED CELL DISTRIBUTION WIDTH 14.5 % (11.0-15.5); WHITE BLOOD COUNT (AUTO) 12.2 K/uL (4.8-10.8)
[2017-11-28 14:26] LABS: CREATININE 1.9 mg/dL (0.5-1.5); POTASSIUM 4.3 mmol/L (3.5-5.1)
[2017-11-28 14:30] LABS: BILIRUBIN,TOTAL 0.4 mg/dL (0.2-1.0); TOTAL PROTEIN, SERUM 7.4 g/dL (6.0-8.3)
[2017-11-28 15:38] LABS: CREATINE KINASE MB < 0.5 ng/mL (0.5-3.6); CREATINE KINASE, TOTAL 27 U/L (21-232)
[2017-11-28] MEDS ORDERED: LEVOFLOXACIN 500 MG TABLET ONE (15:49)
[2017-11-28] MEDS ORDERED: VANCOMYCIN 1GM+NS 250ML 250 ML IV ONE (15:50)
[2017-11-28 22:11] LABS: APPEARANCE,URINE Clear (CLEAR); BILIRUBIN,URINE Negative (NEGATIVE); COLOR,URINE Yellow (YELLOW); GLUCOSE, URINE (UA) 250 mg/dL (NEGATIVE); KETONES,URINE Negative (NEGATIVE); LEUKOCYTE ESTERASE ,URINE Negative (NEGATIVE); NITRATE,URINE Negative (NEGATIVE); OCCULT BLOOD,URINE Negative (NEGATIVE); PROTEIN,URINE 300 (NEGATIVE)
[2017-11-28 22:17] LABS: FINE GRANULAR CASTS,URINE 0-2 /LPF (None Seen); HYALINE CASTS, URINE 0-1 /LPF (0-1 /LPF)
[2017-11-28 22:18] LABS: BACTERIA,URINE Few /HPF (None Seen); RBC,URINE None Seen /HPF (0-1); WBC,URINE 0-1 /HPF (0-1)
[2017-11-28] MEDS ORDERED: VANCOMYCIN PROTOCOL PER PHARMACY IV SCH (23:45)
[2017-11-28] MEDS ORDERED: DEXTROSE 50%-WATER 50 ML DISP.SYRIN IV PRN (23:45)
[2017-11-28] MEDS ORDERED: ONDANSETRON HCL 4 MG/2 ML VIAL IVP PRN (23:45)
[2017-11-28] MEDS ORDERED: GLUCAGON 1MG KIT 1 MG ML IM PRN (23:45)
[2017-11-29] VITALS (7 sets, daily range): BP systolic 124–157; BP diastolic 63–84
[2017-11-29] MEDS: MEROPENEM 500 MG VIAL IVP SCH ×2 (06:00→18:22)
[2017-11-29] MEDS ORDERED: COMPOUND IV REFRIGERATED 1 EACH IVSOLN MISC PRN (06:45)
[2017-11-29] MEDS: INSULIN HUMULIN R 100 UNIT/ML 3ML SQ SCH ×4 (06:59→21:00)
[2017-11-29] MEDS: METFORMIN HCL 500 MG TABLET PO SCH (08:25)
[2017-11-29] MEDS: ASPIRIN 81MG TAB.CHEW PO SCH (08:25)
[2017-11-29] MEDS: SPIRONOLACTONE 25 MG TAB PO SCH (08:25)
[2017-11-29] MEDS: FAMOTIDINE 20MG TAB 20 MG TAB PO SCH ×2 (08:26→21:32)
[2017-11-29] MEDS: FUROSEMIDE 40 MG TABLET PO SCH (08:26)
[2017-11-29] MEDS: LISINOPRIL 5 MG TABLET PO SCH (08:26)
[2017-11-29] MEDS: CARVEDILOL 12.5 MG TABLET PO SCH ×2 (08:26→21:33)
[2017-11-29] MEDS: VANCOMYCIN 1.5 GM in SODIUM CHLORIDE 0.9% 250 ML IV SCH (08:35)
[2017-11-29] MEDS ORDERED: VANCOMYCIN PROTOCOL PER PHARMACY IV SCH (15:00)
[2017-11-29] MEDS: ATORVASTATIN CALCIUM 20 MG TABLET PO SCH (21:32)
[2017-11-30 03:45] VITALS: BP 143/66
[2017-11-30 05:23] LABS: HEMATOCRIT 25.5 % (36-48); MEAN CORPUSCULAR HEMOGLOBIN 30.9 pg (27.0-33.0); MEAN CORPUSCULAR HGB CONC 34.2 g/dL (32.0-36.0); MEAN CORPUSCULAR VOLUME 90.2 fL (79-99); PLATELET COUNT (AUTO) 265 K/uL (130-400); RED BLOOD CELL COUNT(AUTO) 2.83 MIL/uL (4.00-5.50); RED CELL DISTRIBUTION WIDTH 14.5 % (11.0-15.5); WHITE BLOOD COUNT (AUTO) 7.5 K/uL (4.8-10.8)
[2017-11-30 05:39] LABS: BAND NEUTROPHILS % (MANUAL) 2 % (0-2); BASOPHILS % (MANUAL) 3 % (0-2); LYMPHOCYTES % (MANUAL) 13 % (22-44); MAN.DIFF COMMENT-IMPRESSION MANUAL DIFFERENTIAL; MONOCYTES % (MANUAL) 7 % (2-9); PLATELET MORPHOLOGY COMMENT ADEQUATE; POTASSIUM 4.2 mmol/L (3.5-5.1); SEGMENTED NEUTROPHILS % 75 % (40-70)
[2017-11-30] MEDS: METFORMIN HCL 500 MG TABLET PO SCH (06:30)
[2017-11-30] MEDS: MEROPENEM 500 MG VIAL IVP SCH ×2 (06:30→17:37)
[2017-11-30] MEDS: INSULIN HUMULIN R 100 UNIT/ML 3ML SQ SCH ×4 (06:41→21:00)
[2017-11-30 08:00] VITALS: BP 134/74
[2017-11-30] MEDS: LISINOPRIL 5 MG TABLET PO SCH (10:35)
[2017-11-30] MEDS: VANCOMYCIN 1.5 GM in SODIUM CHLORIDE 0.9% 250 ML IV SCH (10:35)
[2017-11-30] MEDS: SPIRONOLACTONE 25 MG TAB PO SCH (10:35)
[2017-11-30] MEDS: ASPIRIN 81MG TAB.CHEW PO SCH (10:36)
[2017-11-30] MEDS: FAMOTIDINE 20MG TAB 20 MG TAB PO SCH ×2 (10:36→22:25)
[2017-11-30] MEDS: CARVEDILOL 12.5 MG TABLET PO SCH ×2 (10:36→22:26)
[2017-11-30] MEDS: FUROSEMIDE 40 MG TABLET PO SCH (10:36)
[2017-11-30 12:00] VITALS: BP 142/74
[2017-11-30 14:19] LABS: POTASSIUM 4.3 mmol/L (3.5-5.1)
[2017-11-30 16:00] VITALS: BP 150/72
[2017-11-30] MEDS: ACETAMINOPHEN 325 MG TAB PO PRN (17:37)
[2017-11-30 19:30] VITALS: BP 133/66
[2017-11-30] MEDS: ATORVASTATIN CALCIUM 20 MG TABLET PO SCH (22:25)
[2017-11-30 23:25] VITALS: BP 125/66
[2017-12-01 03:25] VITALS: BP 128/70
[2017-12-01 05:00] LABS: HEMATOCRIT 25.1 % (36-48); MEAN CORPUSCULAR HEMOGLOBIN 32.1 pg (27.0-33.0); MEAN CORPUSCULAR HGB CONC 35.8 g/dL (32.0-36.0); MEAN CORPUSCULAR VOLUME 89.5 fL (79-99); PLATELET COUNT (AUTO) 262 K/uL (130-400); RED CELL DISTRIBUTION WIDTH 14.1 % (11.0-15.5); WHITE BLOOD COUNT (AUTO) 6.3 K/uL (4.8-10.8)
[2017-12-01 05:06] LABS: POTASSIUM 4.3 mmol/L (3.5-5.1)
[2017-12-01 05:26] LABS: BAND NEUTROPHILS % (MANUAL) 4 % (0-2); BASOPHILS % (MANUAL) 1 % (0-2); EOSINOPHILS % (MANUAL) 4 % (1-6); LYMPHOCYTES % (MANUAL) 36 % (22-44); MONOCYTES % (MANUAL) 10 % (2-9); SEGMENTED NEUTROPHILS % 45 % (40-70)
[2017-12-01 05:27] LABS: MAN.DIFF COMMENT-IMPRESSION MANUAL DIFFERENTIAL
[2017-12-01] MEDS: INSULIN HUMULIN R 100 UNIT/ML 3ML SQ SCH ×4 (06:55→21:00)
[2017-12-01] MEDS: MEROPENEM 500 MG VIAL IVP SCH ×2 (06:59→17:06)
[2017-12-01] MEDS: METFORMIN HCL 500 MG TABLET PO SCH (06:59)
[2017-12-01 07:00] VITALS: BP 150/74
[2017-12-01] MEDS: SPIRONOLACTONE 25 MG TAB PO SCH (09:36)
[2017-12-01] MEDS: LISINOPRIL 5 MG TABLET PO SCH (09:36)
[2017-12-01] MEDS: ASPIRIN 81MG TAB.CHEW PO SCH (09:37)
[2017-12-01] MEDS: FAMOTIDINE 20MG TAB 20 MG TAB PO SCH ×2 (09:37→22:43)
[2017-12-01] MEDS: CARVEDILOL 12.5 MG TABLET PO SCH ×2 (09:37→22:44)
[2017-12-01] MEDS: FUROSEMIDE 40 MG TABLET PO SCH (09:37)
[2017-12-01] MEDS: VANCOMYCIN 1.5 GM in SODIUM CHLORIDE 0.9% 250 ML IV SCH (09:38)
[2017-12-01 11:00] VITALS: BP 146/78
[2017-12-01 16:00] VITALS: BP 134/62
[2017-12-01 19:15] VITALS: BP 148/72
[2017-12-01] MEDS: ATORVASTATIN CALCIUM 20 MG TABLET PO SCH (22:44)
[2017-12-01] MEDS: ACETAMINOPHEN 325 MG TAB PO PRN (22:51)
[2017-12-01 23:50] VITALS: BP 130/70
[2017-12-02 03:45] VITALS: BP 131/69
[2017-12-02] MEDS: ACETAMINOPHEN 325 MG TAB PO PRN (04:27)
[2017-12-02 05:31] LABS: MEAN CORPUSCULAR HEMOGLOBIN 30.5 pg (27.0-33.0); MEAN CORPUSCULAR HGB CONC 34.2 g/dL (32.0-36.0); MEAN CORPUSCULAR VOLUME 89.2 fL (79-99); NUCLEATED RED BLOOD CELLS 0.1 % (0.0-0.19); PLATELET COUNT (AUTO) 324 K/uL (130-400); RED BLOOD CELL COUNT(AUTO) 3.02 MIL/uL (4.00-5.50); RED CELL DISTRIBUTION WIDTH 14.3 % (11.0-15.5); WHITE BLOOD COUNT (AUTO) 6.6 K/uL (4.8-10.8)
[2017-12-02 05:44] LABS: POTASSIUM 4.7 mmol/L (3.5-5.1)
[2017-12-02] MEDS: MEROPENEM 500 MG VIAL IVP SCH ×2 (05:57→17:42)
[2017-12-02] MEDS: INSULIN HUMULIN R 100 UNIT/ML 3ML SQ SCH ×4 (06:15→20:35)
[2017-12-02 07:00] VITALS: BP 135/76
[2017-12-02 07:52] LABS: BASOPHILS % (MANUAL) 2 % (0-2); EOSINOPHILS % (MANUAL) 1 % (1-6); LYMPHOCYTES % (MANUAL) 21 % (22-44); MAN.DIFF COMMENT-IMPRESSION MANUAL DIFFERENTIAL; MONOCYTES % (MANUAL) 14 % (2-9); SEGMENTED NEUTROPHILS % 62 % (40-70)
[2017-12-02 07:53] LABS: PLATELET MORPHOLOGY COMMENT ADEQUATE
[2017-12-02] MEDS: METFORMIN HCL 500 MG TABLET PO SCH (08:18)
[2017-12-02] MEDS: SPIRONOLACTONE 25 MG TAB PO SCH (08:18)
[2017-12-02] MEDS: LISINOPRIL 5 MG TABLET PO SCH (08:18)
[2017-12-02] MEDS: FAMOTIDINE 20MG TAB 20 MG TAB PO SCH ×2 (08:18→20:34)
[2017-12-02] MEDS: VANCOMYCIN 1.5 GM in SODIUM CHLORIDE 0.9% 250 ML IV SCH (08:19)
[2017-12-02] MEDS: FUROSEMIDE 40 MG TABLET PO SCH (08:19)
[2017-12-02] MEDS: ASPIRIN 81MG TAB.CHEW PO SCH (08:19)
[2017-12-02] MEDS: CARVEDILOL 12.5 MG TABLET PO SCH ×2 (08:19→20:35)
[2017-12-02 11:00] VITALS: BP 143/72
[2017-12-02 16:00] VITALS: BP 125/70
[2017-12-02 19:00] VITALS: BP 145/73
[2017-12-02] MEDS: ATORVASTATIN CALCIUM 20 MG TABLET PO SCH (20:35)
[2017-12-03] VITALS (7 sets, daily range): BP systolic 120–142; BP diastolic 63–75
[2017-12-03] MEDS: MEROPENEM 500 MG VIAL IVP SCH ×2 (05:32→18:25)
[2017-12-03 05:41] LABS: HEMATOCRIT 26.8 % (36-48); MEAN CORPUSCULAR HEMOGLOBIN 30.8 pg (27.0-33.0); MEAN CORPUSCULAR HGB CONC 34.6 g/dL (32.0-36.0); MEAN CORPUSCULAR VOLUME 89.1 fL (79-99); NUCLEATED RED BLOOD CELLS 0.1 % (0.0-0.19); PLATELET COUNT (AUTO) 308 K/uL (130-400); RED BLOOD CELL COUNT(AUTO) 3.01 MIL/uL (4.00-5.50); RED CELL DISTRIBUTION WIDTH 14.5 % (11.0-15.5); WHITE BLOOD COUNT (AUTO) 7.5 K/uL (4.8-10.8)
[2017-12-03 05:48] LABS: POTASSIUM 4.2 mmol/L (3.5-5.1)
[2017-12-03] MEDS: INSULIN HUMULIN R 100 UNIT/ML 3ML SQ SCH ×4 (07:00→21:00)
[2017-12-03] MEDS: METFORMIN HCL 500 MG TABLET PO SCH (07:06)
[2017-12-03 07:42] LABS: EOSINOPHILS % (MANUAL) 3 % (1-6); LYMPHOCYTES % (MANUAL) 28 % (22-44); MAN.DIFF COMMENT-IMPRESSION MANUAL DIFFERENTIAL; MONOCYTES % (MANUAL) 11 % (2-9); PLATELET MORPHOLOGY COMMENT ADEQUATE; SEGMENTED NEUTROPHILS % 58 % (40-70)
[2017-12-03] MEDS: LISINOPRIL 5 MG TABLET PO SCH (09:20)
[2017-12-03] MEDS: FUROSEMIDE 40 MG TABLET PO SCH (09:21)
[2017-12-03] MEDS: FAMOTIDINE 20MG TAB 20 MG TAB PO SCH ×2 (09:21→20:48)
[2017-12-03] MEDS: SPIRONOLACTONE 25 MG TAB PO SCH (09:21)
[2017-12-03] MEDS: CARVEDILOL 12.5 MG TABLET PO SCH ×2 (09:21→20:49)
[2017-12-03] MEDS: ASPIRIN 81MG TAB.CHEW PO SCH (09:21)
[2017-12-03] MEDS: ACETAMINOPHEN 325 MG TAB PO PRN ×2 (13:31→20:52)
[2017-12-03] MEDS: ATORVASTATIN CALCIUM 20 MG TABLET PO SCH (20:48)
[2017-12-04 03:30] VITALS: BP 124/70
[2017-12-04 06:13] LABS: HEMATOCRIT 28.8 % (36-48); MEAN CORPUSCULAR HEMOGLOBIN 29.9 pg (27.0-33.0); MEAN CORPUSCULAR HGB CONC 33.4 g/dL (32.0-36.0); MEAN CORPUSCULAR VOLUME 89.6 fL (79-99); NUCLEATED RED BLOOD CELLS 0.1 % (0.0-0.19); PLATELET COUNT (AUTO) 314 K/uL (130-400); RED BLOOD CELL COUNT(AUTO) 3.21 MIL/uL (4.00-5.50); RED CELL DISTRIBUTION WIDTH 14.3 % (11.0-15.5); WHITE BLOOD COUNT (AUTO) 7.3 K/uL (4.8-10.8)
[2017-12-04] MEDS: MEROPENEM 500 MG VIAL IVP SCH (06:20)
[2017-12-04 06:22] LABS: CREATININE 2.3 mg/dL (0.5-1.5); POTASSIUM 4.4 mmol/L (3.5-5.1)
[2017-12-04] MEDS: INSULIN HUMULIN R 100 UNIT/ML 3ML SQ SCH ×4 (06:29→20:45)
[2017-12-04] MEDS: METFORMIN HCL 500 MG TABLET PO SCH (06:34)
[2017-12-04 08:18] LABS: BAND NEUTROPHILS % (MANUAL) 5 % (0-2); BASOPHILS % (MANUAL) 2 % (0-2); EOSINOPHILS % (MANUAL) 4 % (1-6); LYMPHOCYTES % (MANUAL) 25 % (22-44); MAN.DIFF COMMENT-IMPRESSION MANUAL DIFFERENTIAL; MONOCYTES % (MANUAL) 9 % (2-9); SEGMENTED NEUTROPHILS % 55 % (40-70)
[2017-12-04 08:19] LABS: PLATELET MORPHOLOGY COMMENT LARGE PLTS PRESENT
[2017-12-04 09:16] VITALS: BP 128/49
[2017-12-04] MEDS: CARVEDILOL 12.5 MG TABLET PO SCH ×2 (10:59→20:45)
[2017-12-04] MEDS: ASPIRIN 81MG TAB.CHEW PO SCH (11:00)
[2017-12-04] MEDS: FUROSEMIDE 40 MG TABLET PO SCH (11:00)
[2017-12-04] MEDS: FAMOTIDINE 20MG TAB 20 MG TAB PO SCH ×2 (11:00→20:45)
[2017-12-04] MEDS: SPIRONOLACTONE 25 MG TAB PO SCH (11:00)
[2017-12-04] MEDS: LISINOPRIL 5 MG TABLET PO SCH (11:00)
[2017-12-04 13:07] VITALS: BP 150/71
[2017-12-04] MEDS: ACETAMINOPHEN 325 MG TAB PO PRN (13:44)
[2017-12-04 16:00] VITALS: BP 128/68
[2017-12-04] MEDS: VANCOMYCIN 1.5 GM in SODIUM CHLORIDE 0.9% 250 ML IV SCH (16:49)
[2017-12-04] MEDS ORDERED: HONEY 1 APPL/ML TUBE TP SCH (17:45)
[2017-12-04] MEDS: METRONIDAZOLE 500 MG TABLET PO SCH (19:58)
[2017-12-04 20:00] VITALS: BP 155/89
[2017-12-04] MEDS: ATORVASTATIN CALCIUM 20 MG TABLET PO SCH (20:45)
[2017-12-05] VITALS: BP 155/74
[2017-12-05] MEDS: METRONIDAZOLE 500 MG TABLET PO SCH ×2 (01:17→10:48)
[2017-12-05 04:00] VITALS: BP 123/80
[2017-12-05] MEDS: INSULIN HUMULIN R 100 UNIT/ML 3ML SQ SCH (05:54)
[2017-12-05 06:16] LABS: MEAN CORPUSCULAR HEMOGLOBIN 31.1 pg (27.0-33.0); MEAN CORPUSCULAR HGB CONC 34.6 g/dL (32.0-36.0); PLATELET COUNT (AUTO) 330 K/uL (130-400); RED BLOOD CELL COUNT(AUTO) 3.11 MIL/uL (4.00-5.50); RED CELL DISTRIBUTION WIDTH 14.3 % (11.0-15.5); WHITE BLOOD COUNT (AUTO) 7.2 K/uL (4.8-10.8)
[2017-12-05 06:43] LABS: POTASSIUM 4.4 mmol/L (3.5-5.1)
[2017-12-05] MEDS ORDERED: AMLODIPINE BESYLATE 5 MG TAB PO SCH (09:00)
[2017-12-05] MEDS: CARVEDILOL 12.5 MG TABLET PO SCH (09:00)
[2017-12-05 09:04] LABS: EOSINOPHILS % (MANUAL) 4 % (1-6); LYMPHOCYTES % (MANUAL) 20 % (22-44); MONOCYTES % (MANUAL) 4 % (2-9); SEGMENTED NEUTROPHILS % 72 % (40-70)
[2017-12-05 09:05] LABS: MAN.DIFF COMMENT-IMPRESSION MANUAL DIFFERENTIAL
[2017-12-05 09:08] VITALS: BP 145/75
[2017-12-05 09:08] LABS: PLATELET MORPHOLOGY COMMENT LARGE PLTS PRESENT
[2017-12-05] MEDS ORDERED: ASPI-1005 PO (10:23)
[2017-12-05] MEDS ORDERED: AMLO5TAB4 PO (10:23)
[2017-12-05] MEDS: ASPIRIN 81MG TAB.CHEW PO SCH (10:48)
[2017-12-05] MEDS: FUROSEMIDE 40 MG TABLET PO SCH (10:48)
[2017-12-05] MEDS: SPIRONOLACTONE 25 MG TAB PO SCH (10:49)
[2017-12-05] MEDS: FAMOTIDINE 20MG TAB 20 MG TAB PO SCH (10:49)
[2017-12-05] MEDS: VANCOMYCIN 1.5 GM in SODIUM CHLORIDE 0.9% 250 ML IV SCH (10:51)
[2017-12-05 12:22] VITALS: BP 134/85
== END 2017-12-05 16:54 | disposition home or self-care (01) | DRG 863 ==
LOC: EDH 13:24 → EDHIP 13:25 → 4CH 23:35
PROVIDERS: ADMIT Family Medicine; ATTEND Family Medicine
DX: T81.4XXA Infection following a procedure, initial encounter (principal); E11.21 Type 2 diabetes mellitus with diabetic nephropathy; E11.52 Type 2 diabetes mellitus with diabetic peripheral angiopathy with gangrene; E11.621 Type 2 diabetes mellitus with foot ulcer; D63.1 Anemia in chronic kidney disease; B99.8 Other infectious disease; T87.40 Infection of amputation stump, unspecified extremity; T81.31XA Disruption of external operation (surgical) wound, not elsewhere classified, initial encounter; I13.0 Hypertensive heart and chronic kidney disease with heart failure and stage 1 through stage 4 chronic kidney disease, or unspecified chronic kidney disease; L02.612 Cutaneous abscess of left foot; N18.4 Chronic kidney disease, stage 4 (severe); Z68.41 Body mass index [BMI] 40.0-44.9, adult; D72.829 Elevated white blood cell count, unspecified; E11.22 Type 2 diabetes mellitus with diabetic chronic kidney disease; E11.69 Type 2 diabetes mellitus with other specified complication; E66.01 Morbid (severe) obesity due to excess calories; E78.5 Hyperlipidemia, unspecified; I25.10 Atherosclerotic heart disease of native coronary artery without angina pectoris; I50.9 Heart failure, unspecified; K74.60 Unspecified cirrhosis of liver; L97.509 Non-pressure chronic ulcer of other part of unspecified foot with unspecified severity; Y83.5 Amputation of limb(s) as the cause of abnormal reaction of the patient, or of later complication, without mention of misadventure at the time of the procedure; Z91.19 Patient's noncompliance with other medical treatment and regimen; Z89.412 Acquired absence of left great toe; Z83.3 Family history of diabetes mellitus; F32.9 Major depressive disorder, single episode, unspecified
CPT/HCPCS: 36415; 73630; 73718; 80048; 80053; 80202; 81001; 82550; 82553; 82948; 83605; 84484; 84703; 85025; 87040; 87070; 87076; 87077; 87186; 93005; 97039; A4218; J2185; J3370; J7030

== ENCOUNTER → 2017-12-08 | Outpatient (CLI) | payer OTHER ==
[~2017-12-08] MED LIST changes: +AMLO5TAB4 PO; +HONEY 1 APPL/ML TUBE TP ONE; -LEVO500T2 PO; -LISI-617 PO; -MEROPENEM 500 MG VIAL IVP SCH; -METF10004 PO; -VANCOMYCIN 1GM+NS 250ML 250 ML IV SCH
[2017-12-08 10:36] VITALS: BP 171/87
== END | disposition home or self-care (01) ==
LOC: WHH 10:00
PROVIDERS: ATTEND Family Medicine
DX: T81.89XD Other complications of procedures, not elsewhere classified, subsequent encounter (principal); I25.10 Atherosclerotic heart disease of native coronary artery without angina pectoris; E11.22 Type 2 diabetes mellitus with diabetic chronic kidney disease; I13.0 Hypertensive heart and chronic kidney disease with heart failure and stage 1 through stage 4 chronic kidney disease, or unspecified chronic kidney disease; N18.4 Chronic kidney disease, stage 4 (severe); I50.9 Heart failure, unspecified; E11.65 Type 2 diabetes mellitus with hyperglycemia; E11.69 Type 2 diabetes mellitus with other specified complication; E66.01 Morbid (severe) obesity due to excess calories; E11.52 Type 2 diabetes mellitus with diabetic peripheral angiopathy with gangrene; A48.0 Gas gangrene; E11.40 Type 2 diabetes mellitus with diabetic neuropathy, unspecified; E78.5 Hyperlipidemia, unspecified; F32.9 Major depressive disorder, single episode, unspecified; M86.8X7 Other osteomyelitis, ankle and foot; Z68.41 Body mass index [BMI] 40.0-44.9, adult; Z89.412 Acquired absence of left great toe; Z98.61 Coronary angioplasty status; Y83.8 Other surgical procedures as the cause of abnormal reaction of the patient, or of later complication, without mention of misadventure at the time of the procedure
CPT/HCPCS: 97605

== ENCOUNTER → 2017-12-14 | Outpatient (CLI) | payer OTHER ==
[~2017-12-14] MED LIST changes: -HONEY 1 APPL/ML TUBE TP ONE
[2017-12-14 10:54] VITALS: BP 132/76
== END | disposition home or self-care (01) ==
LOC: WHH 09:57
PROVIDERS: ATTEND Family Medicine
DX: T81.89XD Other complications of procedures, not elsewhere classified, subsequent encounter (principal); I25.10 Atherosclerotic heart disease of native coronary artery without angina pectoris; E11.22 Type 2 diabetes mellitus with diabetic chronic kidney disease; I13.0 Hypertensive heart and chronic kidney disease with heart failure and stage 1 through stage 4 chronic kidney disease, or unspecified chronic kidney disease; N18.4 Chronic kidney disease, stage 4 (severe); I50.9 Heart failure, unspecified; E11.65 Type 2 diabetes mellitus with hyperglycemia; E11.69 Type 2 diabetes mellitus with other specified complication; E11.52 Type 2 diabetes mellitus with diabetic peripheral angiopathy with gangrene; A48.0 Gas gangrene; E11.40 Type 2 diabetes mellitus with diabetic neuropathy, unspecified; E78.5 Hyperlipidemia, unspecified; F32.9 Major depressive disorder, single episode, unspecified; M86.8X7 Other osteomyelitis, ankle and foot; Z68.41 Body mass index [BMI] 40.0-44.9, adult; Z89.412 Acquired absence of left great toe; Z98.61 Coronary angioplasty status; Y83.8 Other surgical procedures as the cause of abnormal reaction of the patient, or of later complication, without mention of misadventure at the time of the procedure
CPT/HCPCS: 97605

== ENCOUNTER → 2017-12-19 | Outpatient (CLI) | payer OTHER ==
[2017-12-19 16:28] VITALS: BP 136/78
== END | disposition home or self-care (01) ==
LOC: WHH 14:44
PROVIDERS: ATTEND Family Medicine
DX: T81.89XD Other complications of procedures, not elsewhere classified, subsequent encounter (principal); E66.01 Morbid (severe) obesity due to excess calories; E11.51 Type 2 diabetes mellitus with diabetic peripheral angiopathy without gangrene; F32.9 Major depressive disorder, single episode, unspecified; E78.5 Hyperlipidemia, unspecified; K74.60 Unspecified cirrhosis of liver; E11.22 Type 2 diabetes mellitus with diabetic chronic kidney disease; I13.0 Hypertensive heart and chronic kidney disease with heart failure and stage 1 through stage 4 chronic kidney disease, or unspecified chronic kidney disease; N18.4 Chronic kidney disease, stage 4 (severe); I25.10 Atherosclerotic heart disease of native coronary artery without angina pectoris; I50.9 Heart failure, unspecified; E11.69 Type 2 diabetes mellitus with other specified complication; M86.8X7 Other osteomyelitis, ankle and foot; E11.40 Type 2 diabetes mellitus with diabetic neuropathy, unspecified; E11.52 Type 2 diabetes mellitus with diabetic peripheral angiopathy with gangrene; I96 Gangrene, not elsewhere classified; E11.21 Type 2 diabetes mellitus with diabetic nephropathy; Z89.412 Acquired absence of left great toe; Z89.422 Acquired absence of other left toe(s); Z98.61 Coronary angioplasty status; Y83.8 Other surgical procedures as the cause of abnormal reaction of the patient, or of later complication, without mention of misadventure at the time of the procedure
CPT/HCPCS: 11042; 97605

== ENCOUNTER → 2017-12-22 | Outpatient (CLI) | payer OTHER ==
[~2017-12-22] MED LIST changes: -SPIR25TA4 PO; +SPIR25TA6 PO
[2017-12-22 10:54] VITALS: BP 179/86
== END | disposition home or self-care (01) ==
LOC: WHH 09:45
PROVIDERS: ATTEND Family Medicine
DX: T81.89XD Other complications of procedures, not elsewhere classified, subsequent encounter (principal); E11.69 Type 2 diabetes mellitus with other specified complication; M86.8X7 Other osteomyelitis, ankle and foot; E11.40 Type 2 diabetes mellitus with diabetic neuropathy, unspecified; E11.52 Type 2 diabetes mellitus with diabetic peripheral angiopathy with gangrene; I96 Gangrene, not elsewhere classified; E11.22 Type 2 diabetes mellitus with diabetic chronic kidney disease; I13.0 Hypertensive heart and chronic kidney disease with heart failure and stage 1 through stage 4 chronic kidney disease, or unspecified chronic kidney disease; N18.4 Chronic kidney disease, stage 4 (severe); I50.9 Heart failure, unspecified; I25.10 Atherosclerotic heart disease of native coronary artery without angina pectoris; E66.01 Morbid (severe) obesity due to excess calories; F32.9 Major depressive disorder, single episode, unspecified; E78.5 Hyperlipidemia, unspecified; K74.60 Unspecified cirrhosis of liver; E11.21 Type 2 diabetes mellitus with diabetic nephropathy; Z89.412 Acquired absence of left great toe; Z89.422 Acquired absence of other left toe(s); Z98.61 Coronary angioplasty status; Y83.8 Other surgical procedures as the cause of abnormal reaction of the patient, or of later complication, without mention of misadventure at the time of the procedure
CPT/HCPCS: 97605

== ENCOUNTER → 2017-12-26 | Outpatient (CLI) | payer OTHER ==
[2017-12-26 10:42] VITALS: BP 116/69
== END | disposition home or self-care (01) ==
LOC: WHH 10:00
PROVIDERS: ATTEND Family Medicine
DX: T81.89XD Other complications of procedures, not elsewhere classified, subsequent encounter (principal); I25.10 Atherosclerotic heart disease of native coronary artery without angina pectoris; E11.22 Type 2 diabetes mellitus with diabetic chronic kidney disease; I13.0 Hypertensive heart and chronic kidney disease with heart failure and stage 1 through stage 4 chronic kidney disease, or unspecified chronic kidney disease; N18.4 Chronic kidney disease, stage 4 (severe); I50.9 Heart failure, unspecified; E78.5 Hyperlipidemia, unspecified; F32.9 Major depressive disorder, single episode, unspecified; E66.01 Morbid (severe) obesity due to excess calories; E11.69 Type 2 diabetes mellitus with other specified complication; M86.8X7 Other osteomyelitis, ankle and foot; E11.21 Type 2 diabetes mellitus with diabetic nephropathy; E11.40 Type 2 diabetes mellitus with diabetic neuropathy, unspecified; E11.52 Type 2 diabetes mellitus with diabetic peripheral angiopathy with gangrene; I96 Gangrene, not elsewhere classified; K74.60 Unspecified cirrhosis of liver; Z68.41 Body mass index [BMI] 40.0-44.9, adult; Z99.2 Dependence on renal dialysis; Z89.422 Acquired absence of other left toe(s); Z89.412 Acquired absence of left great toe; Z98.61 Coronary angioplasty status; Y83.8 Other surgical procedures as the cause of abnormal reaction of the patient, or of later complication, without mention of misadventure at the time of the procedure
CPT/HCPCS: 97605

== ENCOUNTER → 2017-12-29 | Outpatient (CLI) | payer OTHER ==
[2017-12-29 11:07] VITALS: BP 140/65
== END | disposition home or self-care (01) ==
LOC: WHH 10:15
PROVIDERS: ATTEND Family Medicine
DX: T81.89XD Other complications of procedures, not elsewhere classified, subsequent encounter (principal); I25.10 Atherosclerotic heart disease of native coronary artery without angina pectoris; E11.52 Type 2 diabetes mellitus with diabetic peripheral angiopathy with gangrene; I96 Gangrene, not elsewhere classified; E11.22 Type 2 diabetes mellitus with diabetic chronic kidney disease; I13.0 Hypertensive heart and chronic kidney disease with heart failure and stage 1 through stage 4 chronic kidney disease, or unspecified chronic kidney disease; N18.4 Chronic kidney disease, stage 4 (severe); I50.9 Heart failure, unspecified; E78.5 Hyperlipidemia, unspecified; F32.9 Major depressive disorder, single episode, unspecified; E66.01 Morbid (severe) obesity due to excess calories; E11.69 Type 2 diabetes mellitus with other specified complication; M86.8X7 Other osteomyelitis, ankle and foot; E11.21 Type 2 diabetes mellitus with diabetic nephropathy; Z98.61 Coronary angioplasty status; Z89.422 Acquired absence of other left toe(s); Z89.412 Acquired absence of left great toe; Z99.2 Dependence on renal dialysis; Y83.8 Other surgical procedures as the cause of abnormal reaction of the patient, or of later complication, without mention of misadventure at the time of the procedure
CPT/HCPCS: 97605

== ENCOUNTER → 2018-01-02 | Outpatient (CLI) | payer OTHER ==
[2018-01-02 10:34] VITALS: BP 159/87
== END | disposition home or self-care (01) ==
LOC: WHH 10:00
PROVIDERS: ATTEND Family Medicine
DX: T81.89XD Other complications of procedures, not elsewhere classified, subsequent encounter (principal); I25.10 Atherosclerotic heart disease of native coronary artery without angina pectoris; E11.52 Type 2 diabetes mellitus with diabetic peripheral angiopathy with gangrene; A48.0 Gas gangrene; E11.40 Type 2 diabetes mellitus with diabetic neuropathy, unspecified; E11.65 Type 2 diabetes mellitus with hyperglycemia; E11.22 Type 2 diabetes mellitus with diabetic chronic kidney disease; I13.0 Hypertensive heart and chronic kidney disease with heart failure and stage 1 through stage 4 chronic kidney disease, or unspecified chronic kidney disease; N18.4 Chronic kidney disease, stage 4 (severe); I50.9 Heart failure, unspecified; E78.5 Hyperlipidemia, unspecified; F32.9 Major depressive disorder, single episode, unspecified; E66.01 Morbid (severe) obesity due to excess calories; E11.69 Type 2 diabetes mellitus with other specified complication; M86.8X7 Other osteomyelitis, ankle and foot; E11.21 Type 2 diabetes mellitus with diabetic nephropathy; Z98.61 Coronary angioplasty status; Z89.422 Acquired absence of other left toe(s); Z89.412 Acquired absence of left great toe; Z99.2 Dependence on renal dialysis; Y83.8 Other surgical procedures as the cause of abnormal reaction of the patient, or of later complication, without mention of misadventure at the time of the procedure
CPT/HCPCS: 97605

== ENCOUNTER → 2018-01-05 | Outpatient (CLI) | payer OTHER ==
[~2018-01-05] MED LIST changes: +LIDOCAINE/PRILOCAINE CREAM 5GM TUBE TP ONE
[2018-01-05 15:12] VITALS: BP 180/89
== END | disposition home or self-care (01) ==
LOC: WHH 13:45
PROVIDERS: ATTEND Family Medicine
DX: T81.89XD Other complications of procedures, not elsewhere classified, subsequent encounter (principal); I25.10 Atherosclerotic heart disease of native coronary artery without angina pectoris; E11.52 Type 2 diabetes mellitus with diabetic peripheral angiopathy with gangrene; A48.0 Gas gangrene; E11.40 Type 2 diabetes mellitus with diabetic neuropathy, unspecified; E11.65 Type 2 diabetes mellitus with hyperglycemia; E11.22 Type 2 diabetes mellitus with diabetic chronic kidney disease; I13.0 Hypertensive heart and chronic kidney disease with heart failure and stage 1 through stage 4 chronic kidney disease, or unspecified chronic kidney disease; N18.4 Chronic kidney disease, stage 4 (severe); I50.9 Heart failure, unspecified; E78.5 Hyperlipidemia, unspecified; F32.9 Major depressive disorder, single episode, unspecified; E66.01 Morbid (severe) obesity due to excess calories; K74.60 Unspecified cirrhosis of liver; E11.69 Type 2 diabetes mellitus with other specified complication; M86.8X7 Other osteomyelitis, ankle and foot; E11.21 Type 2 diabetes mellitus with diabetic nephropathy; Z98.61 Coronary angioplasty status; Z89.422 Acquired absence of other left toe(s); Z89.412 Acquired absence of left great toe; Z99.2 Dependence on renal dialysis; Y83.8 Other surgical procedures as the cause of abnormal reaction of the patient, or of later complication, without mention of misadventure at the time of the procedure
CPT/HCPCS: 11042; 97605; J3490

== ENCOUNTER → 2018-01-09 | Outpatient (CLI) | payer OTHER ==
[~2018-01-09] MED LIST changes: -LIDOCAINE/PRILOCAINE CREAM 5GM TUBE TP ONE
[2018-01-09 10:24] VITALS: BP 131/67
== END | disposition home or self-care (01) ==
LOC: WHH 09:45
PROVIDERS: ATTEND Family Medicine
DX: T81.89XD Other complications of procedures, not elsewhere classified, subsequent encounter (principal); I25.10 Atherosclerotic heart disease of native coronary artery without angina pectoris; E11.52 Type 2 diabetes mellitus with diabetic peripheral angiopathy with gangrene; A48.0 Gas gangrene; E11.40 Type 2 diabetes mellitus with diabetic neuropathy, unspecified; E11.65 Type 2 diabetes mellitus with hyperglycemia; E11.22 Type 2 diabetes mellitus with diabetic chronic kidney disease; I13.0 Hypertensive heart and chronic kidney disease with heart failure and stage 1 through stage 4 chronic kidney disease, or unspecified chronic kidney disease; N18.4 Chronic kidney disease, stage 4 (severe); I50.9 Heart failure, unspecified; E78.5 Hyperlipidemia, unspecified; F32.9 Major depressive disorder, single episode, unspecified; E66.01 Morbid (severe) obesity due to excess calories; K74.60 Unspecified cirrhosis of liver; E11.69 Type 2 diabetes mellitus with other specified complication; M86.8X7 Other osteomyelitis, ankle and foot; E11.21 Type 2 diabetes mellitus with diabetic nephropathy; Z98.61 Coronary angioplasty status; Z89.422 Acquired absence of other left toe(s); Z89.412 Acquired absence of left great toe; Z99.2 Dependence on renal dialysis; Y83.8 Other surgical procedures as the cause of abnormal reaction of the patient, or of later complication, without mention of misadventure at the time of the procedure
CPT/HCPCS: 97605

== ENCOUNTER → 2020-01-21 | Outpatient (CLI) | payer MEDICARE ==
[~2020-01-21] MED LIST changes: +AMLO10TA7 PO; -AMLO5TAB4 PO; -ATOR20TA65 PO; -CARV12.511 PO; -FURO40TA5 PO; +GLIP10TA9 PO; +LISI1TAB29 PO; +ROSU40TA21 PO; -SPIR25TA6 PO
== END | disposition home or self-care (01) ==
LOC: SHCH 15:39
PROVIDERS: ATTEND Internal Medicine Cardiovascular Disease
DX: I51.7 Cardiomegaly (principal); I42.9 Cardiomyopathy, unspecified
CPT/HCPCS: 93306

== ENCOUNTER 2020-12-04 10:43 | Inpatient (IN) | payer OTHER, MEDICARE ==
[~2020-12-04] VITALS: Ht 160 cm; Wt 109.8 kg
[~2020-12-04 10:43] MED LIST changes: +AMLO-258 PO; -AMLO10TA7 PO; -LISI1TAB29 PO; +LISI1TAB53 PO
[2020-12-04 12:26] LABS: BASOPHILS % (AUTO) 0.4 % (0.0-5.0); EOSINOPHILS % (AUTO) 0.8 % (0.0-8.0); HEMATOCRIT 29.5 % (36-48); LYMPHOCYTES % (AUTO) 11.4 % (21.0-51.0); MEAN CORPUSCULAR HEMOGLOBIN 29.8 pg (27.0-33.0); MEAN CORPUSCULAR HGB CONC 32.2 g/dL (32.0-36.0); MEAN CORPUSCULAR VOLUME 92.5 fL (79-99); NEUTROPHILS % (AUTO) 81.4 % (40.0-77.0); PLATELET COUNT (AUTO) 393 K/uL (130-400); RED BLOOD CELL COUNT(AUTO) 3.19 MIL/uL (4.00-5.50); WHITE BLOOD COUNT (AUTO) 18.9 K/uL (4.8-10.8)
[2020-12-04 12:46] LABS: CREATININE 2.6 mg/dL (0.5-1.5); POTASSIUM 5.1 mmol/L (3.5-5.1)
[2020-12-04 12:47] LABS: INR 1.05 (0.85-1.15); PROTHROMBIN TIME 11.4 SEC (9.6-11.6)
[2020-12-04 12:48] LABS: PARTIAL THROMBOPLASTIN TIME 26.1 SEC (26.3-35.5)
[2020-12-04 12:50] LABS: ALBUMIN 2.5 g/dL (3.5-5.0); BILIRUBIN,TOTAL 0.2 mg/dL (0.2-1.0); TOTAL PROTEIN, SERUM 9.2 g/dL (6.0-8.3)
[2020-12-04] MEDS: ENOXAPARIN SODIUM 30 MG/0.3 ML SQ SCH (15:53)
[2020-12-04] MEDS ORDERED: ONDANSETRON 4MG TABLET PO PRN (16:00)
[2020-12-04] MEDS ORDERED: CEFEPIME HCL 1 GM VIAL ONE (16:07)
[2020-12-04] MEDS ORDERED: 0.9%NACL 50ML 50 ML IV ONE (16:08)
[2020-12-04] MEDS ORDERED: LINEZOLID 600 MG/ISO-OSM 300 ML IV SCH (18:00)
[2020-12-04] MEDS ORDERED: MORPHINE 2 MG SYG ONE (21:53)
[2020-12-05] VITALS (7 sets, daily range): BP systolic 141–170; BP diastolic 63–89
[2020-12-05] MEDS: CEFEPIME HCL 1 GM VIAL IVP SCH ×2 (05:04→17:10)
[2020-12-05 05:33] LABS: HEMATOCRIT 28.9 % (36-48); MEAN CORPUSCULAR HEMOGLOBIN 29.2 pg (27.0-33.0); MEAN CORPUSCULAR HGB CONC 31.5 g/dL (32.0-36.0); MEAN CORPUSCULAR VOLUME 92.6 fL (79-99); RED BLOOD CELL COUNT(AUTO) 3.12 MIL/uL (4.00-5.50); RED CELL DISTRIBUTION WIDTH 12.1 % (11.0-15.5); WHITE BLOOD COUNT (AUTO) 15.3 K/uL (4.8-10.8)
[2020-12-05 05:44] LABS: HEMOGLOBIN A1C 9.2 % (4.0-6.0)
[2020-12-05 05:50] LABS: ALBUMIN 2.2 g/dL (3.5-5.0); BILIRUBIN,TOTAL 0.2 mg/dL (0.2-1.0); CREATININE 2.5 mg/dL (0.5-1.5); MAGNESIUM 2.1 mg/dL (1.80-2.40); POTASSIUM 5.3 mmol/L (3.5-5.1); TOTAL PROTEIN, SERUM 8.3 g/dL (6.0-8.3)
[2020-12-05] MEDS: ENOXAPARIN SODIUM 30 MG/0.3 ML SQ SCH (09:31)
[2020-12-05] MEDS: LINEZOLID 600 MG/ISO-OSM 300 ML IV SCH ×2 (09:31→20:26)
[2020-12-05] MEDS: ACETAMINOPHEN 325 MG TAB PO PRN (12:23)
[2020-12-05] MEDS ORDERED: KAYEXALATE 15GM/60ML PO SCH (13:30)
[2020-12-05] MEDS: MORPHINE 2 MG SYG IVP PRN (14:27)
[2020-12-05] MEDS: INSULIN HUMULIN R 100 UNIT/ML 3ML SQ SCH (20:31)
[2020-12-06] VITALS (14 sets, daily range): BP systolic 106–188; BP diastolic 69–79
[2020-12-06] MEDS: MORPHINE 2 MG SYG IVP PRN ×3 (01:48→22:56)
[2020-12-06] MEDS: CEFEPIME HCL 1 GM VIAL IVP SCH ×2 (04:13→17:32)
[2020-12-06 05:48] LABS: HEMATOCRIT 27.8 % (36-48); MEAN CORPUSCULAR HEMOGLOBIN 28.9 pg (27.0-33.0); MEAN CORPUSCULAR HGB CONC 31.7 g/dL (32.0-36.0); MEAN CORPUSCULAR VOLUME 91.4 fL (79-99); RED BLOOD CELL COUNT(AUTO) 3.04 MIL/uL (4.00-5.50); RED CELL DISTRIBUTION WIDTH 12.1 % (11.0-15.5); WHITE BLOOD COUNT (AUTO) 16.6 K/uL (4.8-10.8)
[2020-12-06] MEDS ORDERED: LIDOCAINE HCL 1% 20 ML VIAL ONE (06:05)
[2020-12-06] MEDS ORDERED: BUPIVACAINE/PF 0.5% 30ML VIAL ONE (06:05)
[2020-12-06 06:09] LABS: CREATININE 2.5 mg/dL (0.5-1.5); POTASSIUM 4.9 mmol/L (3.5-5.1)
[2020-12-06] MEDS ORDERED: MIDAZOLAM HCL 1 MG/ML 2ML VIAL ONE (06:55)
[2020-12-06] MEDS ORDERED: FENTANYL CITRATE PF 50 MCG/1 ML 2ML VIAL ONE (06:56)
[2020-12-06] MEDS: INSULIN HUMULIN R 100 UNIT/ML 3ML SQ SCH ×5 (07:30→21:29)
[2020-12-06] MEDS ORDERED: ONDANSETRON 4MG INJ ONE (08:09)
[2020-12-06] MEDS: ENOXAPARIN SODIUM 30 MG/0.3 ML SQ SCH (09:00)
[2020-12-06] MEDS: LINEZOLID 600 MG/ISO-OSM 300 ML IV SCH ×2 (09:06→21:21)
[2020-12-06] MEDS ORDERED: MORPHINE 2 MG SYG IVP PRN ×2 (11:45)
[2020-12-06] MEDS: ACETAMINOPHEN 325 MG TAB PO PRN (11:58)
[2020-12-06] MEDS ORDERED: TRAMADOL HCL 50 MG TABLET ONE (12:27)
[2020-12-06] MEDS ORDERED: TRAMADOL HCL 50 MG TABLET PO PRN (12:30)
[2020-12-06] MEDS ORDERED: CLONIDINE HCL 0.1 MG TABLET PO PRN (13:15)
[2020-12-06] MEDS: HYDROMORPHONE 0.5 MG SYG (0.5MG/0.5ML) IVP PRN ×2 (17:52→21:32)
[2020-12-07 03:52] VITALS: BP 169/78
[2020-12-07] MEDS: MORPHINE 2 MG SYG IVP PRN ×3 (04:18→22:13)
[2020-12-07 04:37] LABS: ALBUMIN 1.7 g/dL (3.5-5.0); CREATININE 2.4 mg/dL (0.5-1.5); PHOSPHORUS 3.9 mg/dL (2.5-4.9); POTASSIUM 4.8 mmol/L (3.5-5.1)
[2020-12-07] MEDS: CEFEPIME HCL 1 GM VIAL IVP SCH ×2 (06:09→17:10)
[2020-12-07] MEDS: INSULIN HUMULIN R 100 UNIT/ML 3ML SQ SCH ×4 (06:43→20:06)
[2020-12-07 08:00] VITALS: BP 168/70
[2020-12-07] MEDS: LINEZOLID 600 MG/ISO-OSM 300 ML IV SCH ×2 (09:35→20:04)
[2020-12-07] MEDS: ENOXAPARIN SODIUM 30 MG/0.3 ML SQ SCH (09:36)
[2020-12-07] MEDS: HYDROMORPHONE 0.5 MG SYG (0.5MG/0.5ML) IVP PRN (09:37)
[2020-12-07 12:00] VITALS: BP 182/81
[2020-12-07 16:00] VITALS: BP 175/76
[2020-12-07] MEDS: CLONIDINE HCL 0.1 MG TABLET PO PRN (17:50)
[2020-12-07 19:57] VITALS: BP 174/76
[2020-12-07] MEDS: GLIPIZIDE 5 MG TABLET PO SCH (20:04)
[2020-12-07] MEDS: ATORVASTATIN 40 MG TABLET PO SCH (20:04)
[2020-12-07 23:45] VITALS: BP 126/60
[2020-12-08 04:24] VITALS: BP 142/66
[2020-12-08] MEDS: CEFEPIME HCL 1 GM VIAL IVP SCH ×2 (04:57→17:15)
[2020-12-08] MEDS: INSULIN HUMULIN R 100 UNIT/ML 3ML SQ SCH ×4 (05:58→20:32)
[2020-12-08 08:44] VITALS: BP 150/65
[2020-12-08] MEDS: ENOXAPARIN SODIUM 30 MG/0.3 ML SQ SCH (09:14)
[2020-12-08] MEDS: LINEZOLID 600 MG/ISO-OSM 300 ML IV SCH ×2 (09:14→20:29)
[2020-12-08] MEDS: HYDROCHLOROTHIAZIDE 25 MG TABLET PO SCH (09:15)
[2020-12-08] MEDS: GLIPIZIDE 5 MG TABLET PO SCH ×2 (09:15→20:29)
[2020-12-08] MEDS: ASPIRIN 81MG CHEW TAB PO SCH (09:15)
[2020-12-08] MEDS: AMLODIPINE 5 MG TAB PO SCH (09:16)
[2020-12-08] MEDS: LISINOPRIL 20 MG TABLET PO SCH (09:16)
[2020-12-08] MEDS: HYDROMORPHONE 0.5 MG SYG (0.5MG/0.5ML) IVP PRN ×2 (09:17→23:45)
[2020-12-08 12:00] VITALS: BP 153/71
[2020-12-08] MEDS: CLONIDINE HCL 0.1 MG TABLET PO PRN (17:11)
[2020-12-08 18:05] VITALS: BP 177/81
[2020-12-08 19:41] VITALS: BP 157/64
[2020-12-08] MEDS: ATORVASTATIN 40 MG TABLET PO SCH (20:29)
[2020-12-09] VITALS (7 sets, daily range): BP systolic 105–166; BP diastolic 49–77
[2020-12-09] MEDS: CEFEPIME HCL 1 GM VIAL IVP SCH ×2 (04:35→18:27)
[2020-12-09] MEDS: INSULIN HUMULIN R 100 UNIT/ML 3ML SQ SCH ×4 (05:43→21:00)
[2020-12-09] MEDS: AMLODIPINE 5 MG TAB PO SCH (08:53)
[2020-12-09] MEDS: ENOXAPARIN SODIUM 30 MG/0.3 ML SQ SCH (08:53)
[2020-12-09] MEDS: ASPIRIN 81MG CHEW TAB PO SCH (08:54)
[2020-12-09] MEDS: HYDROCHLOROTHIAZIDE 25 MG TABLET PO SCH (08:54)
[2020-12-09] MEDS: LISINOPRIL 20 MG TABLET PO SCH (08:54)
[2020-12-09] MEDS: MORPHINE 2 MG SYG IVP PRN (08:56)
[2020-12-09] MEDS: LINEZOLID 600 MG/ISO-OSM 300 ML IV SCH ×2 (10:20→22:09)
[2020-12-09] MEDS: GLIPIZIDE 5 MG TABLET PO SCH ×2 (10:21→22:09)
[2020-12-09 14:03] LABS: INR 1.06 (0.85-1.15); PROTHROMBIN TIME 11.5 SEC (9.6-11.6)
[2020-12-09] MEDS: ATORVASTATIN 40 MG TABLET PO SCH (22:09)
[2020-12-10] MEDS: MORPHINE 2 MG SYG IVP PRN (01:01)
[2020-12-10 04:44] VITALS: BP 166/68
[2020-12-10] MEDS: CEFEPIME HCL 1 GM VIAL IVP SCH (04:58)
[2020-12-10] MEDS: INSULIN HUMULIN R 100 UNIT/ML 3ML SQ SCH ×2 (05:52→12:01)
[2020-12-10 07:00] VITALS: BP 161/68
[2020-12-10 11:30] VITALS: BP 144/62
[2020-12-10] MEDS: ASPIRIN 81MG CHEW TAB PO SCH (11:48)
[2020-12-10] MEDS: HYDROCHLOROTHIAZIDE 25 MG TABLET PO SCH (11:49)
[2020-12-10] MEDS: GLIPIZIDE 5 MG TABLET PO SCH (11:49)
[2020-12-10] MEDS: AMLODIPINE 5 MG TAB PO SCH (11:50)
[2020-12-10] MEDS: LISINOPRIL 20 MG TABLET PO SCH (11:50)
[2020-12-10] MEDS: ENOXAPARIN SODIUM 30 MG/0.3 ML SQ SCH (11:51)
[2020-12-10] MEDS: LINEZOLID 600 MG/ISO-OSM 300 ML IV SCH (11:58)
== END 2020-12-10 16:05 | DRG 854 ==
LOC: EDH 10:43 → EDHIP 15:20 → 3DH 21:10
PROVIDERS: ADMIT Internal Medicine Infectious Disease; ATTEND Internal Medicine Infectious Disease
PROC: 0Y6N0ZC Detachment at Left Foot, Partial 3rd Ray, Open Approach (ICD-10-PCS; 2020-12-06)
PROC: 0Y6N0ZD Detachment at Left Foot, Partial 4th Ray, Open Approach (ICD-10-PCS; 2020-12-06)
PROC: 02HV33Z Insertion of Infusion Device into Superior Vena Cava, Percutaneous Approach (ICD-10-PCS; 2020-12-06)
PROC: 0Y6N0ZB Detachment at Left Foot, Partial 2nd Ray, Open Approach (ICD-10-PCS; principal; 2020-12-06 06:54)
DX: A41.9 Sepsis, unspecified organism (principal); L02.612 Cutaneous abscess of left foot; M86.9 Osteomyelitis, unspecified; E11.52 Type 2 diabetes mellitus with diabetic peripheral angiopathy with gangrene; E87.2 Acidosis; L02.31 Cutaneous abscess of buttock; N18.4 Chronic kidney disease, stage 4 (severe); Z68.41 Body mass index [BMI] 40.0-44.9, adult; E87.1 Hypo-osmolality and hyponatremia; E11.621 Type 2 diabetes mellitus with foot ulcer; D63.1 Anemia in chronic kidney disease; E11.22 Type 2 diabetes mellitus with diabetic chronic kidney disease; E11.42 Type 2 diabetes mellitus with diabetic polyneuropathy; E11.622 Type 2 diabetes mellitus with other skin ulcer; E11.69 Type 2 diabetes mellitus with other specified complication; E66.9 Obesity, unspecified; E78.00 Pure hypercholesterolemia, unspecified; E87.5 Hyperkalemia; I12.9 Hypertensive chronic kidney disease with stage 1 through stage 4 chronic kidney disease, or unspecified chronic kidney disease; K74.60 Unspecified cirrhosis of liver; L98.499 Non-pressure chronic ulcer of skin of other sites with unspecified severity; Z83.3 Family history of diabetes mellitus
CPT/HCPCS: 36415; 73630; 80048; 80053; 80069; 82948; 83036; 83735; 85025; 85027; 85610; 85730; 87040; 87070; 87076; 87077; 87186; 87205; 88307; 88311; 97039; A4344; C1894; G0378; J0692; J1170; J1650; J1815; J2020; J2250; J2405; J3010; J3490; J7030

== ENCOUNTER 2021-08-19 10:49 | Inpatient (IN) | payer OTHER, MEDICARE ==
[~2021-08-19] VITALS: Ht 157.5 cm; Wt 99.8 kg
[2021-08-19 12:03] LABS: BASOPHILS % (AUTO) 0.5 % (0.0-5.0); EOSINOPHILS % (AUTO) 0.1 % (0.0-8.0); HEMATOCRIT 36.8 % (36-48); LYMPHOCYTES % (AUTO) 15.6 % (21.0-51.0); MEAN CORPUSCULAR HEMOGLOBIN 29.4 pg (27.0-33.0); MEAN CORPUSCULAR HGB CONC 33.7 g/dL (32.0-36.0); MEAN CORPUSCULAR VOLUME 87.2 fL (79-99); NEUTROPHILS % (AUTO) 79.1 % (40.0-77.0); PLATELET COUNT (AUTO) 192 K/uL (130-400); RED BLOOD CELL COUNT(AUTO) 4.22 MIL/uL (4.00-5.50); RED CELL DISTRIBUTION WIDTH 11.6 % (11.0-15.5); WHITE BLOOD COUNT (AUTO) 15.6 K/uL (4.8-10.8)
[2021-08-19 12:11] LABS: CREATININE 3.5 mg/dL (0.5-1.5); POTASSIUM 5.4 mmol/L (3.5-5.1)
[2021-08-19 12:16] LABS: ALBUMIN 3.2 g/dL (3.5-5.0); BILIRUBIN,TOTAL 0.2 mg/dL (0.2-1.0); TOTAL PROTEIN, SERUM 8.2 g/dL (6.0-8.3)
[2021-08-19] MEDS ORDERED: LORAZEPAM 2 MG/ML 1 ML VIAL ONE ×3 (12:41→16:14)
[2021-08-19] MEDS ORDERED: LEVETIRACETAM 500 MG/5 ML SD VIAL IV ONE (12:45)
[2021-08-19] MEDS ORDERED: ONDANSETRON 4MG INJ ONE (12:47)
[2021-08-19 13:08] LABS: ABG BASE EXCESS -11.8 mmol/L (-2.0-3.0); ABG HCO3 16.8 mmol/L (21.0-28.0); ABG OXYGEN SATURATION 99.8 % (95.0-99.0); ABG PCO2 48 mmHg (32-45)
[2021-08-19 13:11] LABS: APPEARANCE,URINE Cloudy (CLEAR); BILIRUBIN,URINE Negative (NEGATIVE); COLOR,URINE Yellow (YELLOW); GLUCOSE, URINE (UA) >=1000 mg/dL (NEGATIVE); KETONES,URINE Negative (NEGATIVE); LEUKOCYTE ESTERASE ,URINE Trace (NEGATIVE); NITRATE,URINE Positive (NEGATIVE); OCCULT BLOOD,URINE Large (NEGATIVE); PH,URINE 5.5 (5.0-8.0); PROTEIN,URINE 300 mg/dL (NEGATIVE); UROBILINOGEN,URINE 0.2 mg/dL (0.2-1.0)
[2021-08-19 13:18] LABS: AMPHET/METH SCREEN,URINE NEGATIVE (NEGATIVE); BARBITURATE SCREEN, URINE NEGATIVE (NEGATIVE); BENZODIAZEPINES SCREEN,URINE NEGATIVE (NEGATIVE); CANNABINOID SCREEN,URINE NEGATIVE (NEGATIVE); COCAINE SCREEN,URINE NEGATIVE (NEGATIVE); OPIATE SCREEN,URINE NEGATIVE (NEGATIVE); PHENCYCLIDINE SCREEN,URINE NEGATIVE (NEGATIVE)
[2021-08-19] MEDS ORDERED: SODIUM BICARB 50MEQ 50ML VIAL 100 ML ONE (13:29)
[2021-08-19] MEDS ORDERED: 0.9%NACL 1000ML 1,572 ML IV ONE (13:30)
[2021-08-19] MEDS ORDERED: 0.9%NACL 1000ML 1,000 ML IV ONE (13:30)
[2021-08-19] MEDS ORDERED: CEFTRIAXONE 1G VIAL 2 GM in 0.9%NACL 100ML 100 ML IV ONE (13:30)
[2021-08-19] MEDS ORDERED: CEFTRIAXONE 2GM VIAL IVP ONE (13:30)
[2021-08-19 13:45] LABS: BACTERIA,URINE Moderate /HPF (None Seen)
[2021-08-19 13:46] LABS: SQUAMOUS EPITHELIAL CELL,UR Few /HPF (0-2)
[2021-08-19 13:52] LABS: INR 1.02 (0.85-1.15); PROTHROMBIN TIME 11.1 SEC (9.6-11.6)
[2021-08-19 13:54] LABS: PARTIAL THROMBOPLASTIN TIME 23.2 SEC (26.3-35.5)
[2021-08-19] MEDS ORDERED: LEVETIRACETAM 1,000 MG in 0.9%NACL 100ML 100 ML IV SCH (14:00)
[2021-08-19 14:02] LABS: ALCOHOL, BLOOD < 3 mg/dL (0-10); LIPASE 101 U/L (114-286)
[2021-08-19] MEDS ORDERED: ROCURONIUM BROMIDE 10MG/1ML 5ML VL IV ONE (14:10)
[2021-08-19] MEDS ORDERED: SUCCINYLCHOLINE CHLORIDE 20 MG/ML 10 ML VIAL IVP ONE (14:10)
[2021-08-19 14:16] LABS: ACETAMINOPHEN < 1 mcg/mL (10-30); SALICYLATE < 2.8 mg/dL (2.8-20.0)
[2021-08-19 14:18] LABS: CREATINE KINASE, TOTAL 817 U/L (21-232)
[2021-08-19] MEDS ORDERED: INSULIN HUMULIN R 100 UNIT/ML 3ML IV ONE (14:30)
[2021-08-19 14:31] LABS: ACETONE,BLOOD NEGATIVE (NEGATIVE)
[2021-08-19 15:25] LABS: ABG BASE EXCESS -4.4 mmol/L (-2.0-3.0); ABG HCO3 22.1 mmol/L (21.0-28.0); ABG OXYGEN SATURATION 92.6 % (95.0-99.0); ABG PCO2 46 mmHg (32-45)
[2021-08-19] MEDS ORDERED: LORAZEPAM 2 MG/ML 1 ML VIAL IVP PRN (18:00)
[2021-08-19] MEDS ORDERED: ACETAMINOPHEN 325 MG TAB PO PRN ×2 (18:00)
[2021-08-19] MEDS ORDERED: ONDANSETRON 4MG INJ IVP PRN (18:00)
[2021-08-19] MEDS ORDERED: LISI30TA4 PO (18:31)
[2021-08-19] MEDS ORDERED: CARV25TA PO (18:31)
[2021-08-19] MEDS ORDERED: CLON0.2T PO (18:31)
[2021-08-19] MEDS ORDERED: ROSU20TA31 PO (18:31)
[2021-08-19] MEDS ORDERED: HYDR-3420 PO (18:31)
[2021-08-19] MEDS: HEPARIN 5,000 UNIT VIAL SQ SCH (18:44)
[2021-08-19] MEDS: LEVETIRACETAM 500 MG in 0.9%NACL 100ML 100 ML IV SCH (20:46)
[2021-08-19] MEDS: INSULIN HUMULIN R 100 UNIT/ML 3ML SQ SCH (20:47)
[2021-08-20 02:19] VITALS: BP 150/84
[2021-08-20] MEDS: HEPARIN 5,000 UNIT VIAL SQ SCH ×2 (05:10→18:19)
[2021-08-20] MEDS: INSULIN HUMULIN R 100 UNIT/ML 3ML SQ SCH ×4 (06:55→21:47)
[2021-08-20 08:00] VITALS: BP 186/80
[2021-08-20] MEDS: LISINOPRIL 10 MG TABLET PO SCH (09:58)
[2021-08-20] MEDS: LEVETIRACETAM 500 MG in 0.9%NACL 100ML 100 ML IV SCH ×2 (09:58→21:42)
[2021-08-20] MEDS ORDERED: CLONIDINE HCL 0.1 MG TABLET ONE (10:00)
[2021-08-20] MEDS ORDERED: HYDRALAZINE HCL 10 MG TABLET ONE (10:00)
[2021-08-20] MEDS: HYDRALAZINE HCL 10 MG TABLET PO SCH ×2 (10:01→21:45)
[2021-08-20 12:00] VITALS: BP 167/58
[2021-08-20] MEDS ORDERED: COMPOUND IV MISC 1 EACH IVSOLN MISC PRN (12:30)
[2021-08-20 16:00] VITALS: BP 128/59
[2021-08-20 19:15] VITALS: BP 152/52
[2021-08-20] MEDS: CARVEDILOL 25 MG TABLET PO SCH (21:45)
[2021-08-20] MEDS: ATORVASTATIN 40 MG TABLET PO SCH (21:46)
[2021-08-20] MEDS: CLONIDINE HCL 0.2 MG TABLET PO SCH (23:35)
[2021-08-21] VITALS (8 sets, daily range): BP systolic 132–172; BP diastolic 49–76
[2021-08-21 05:47] LABS: BASOPHILS % (AUTO) 0.4 % (0.0-5.0); EOSINOPHILS % (AUTO) 1.7 % (0.0-8.0); HEMATOCRIT 30.7 % (36-48); LYMPHOCYTES % (AUTO) 28.8 % (21.0-51.0); MEAN CORPUSCULAR HEMOGLOBIN 29.5 pg (27.0-33.0); MEAN CORPUSCULAR HGB CONC 33.2 g/dL (32.0-36.0); MEAN CORPUSCULAR VOLUME 88.7 fL (79-99); MONOCYTES % (AUTO) 8.4 % (3.0-13.0); NEUTROPHILS % (AUTO) 60.4 % (40.0-77.0); PLATELET COUNT (AUTO) 161 K/uL (130-400); RED BLOOD CELL COUNT(AUTO) 3.46 MIL/uL (4.00-5.50); RED CELL DISTRIBUTION WIDTH 11.5 % (11.0-15.5); WHITE BLOOD COUNT (AUTO) 9.3 K/uL (4.8-10.8)
[2021-08-21] MEDS: 0.9%NACL 1000ML 1,000 ML IV SCH ×2 (05:56→22:07)
[2021-08-21] MEDS: INSULIN HUMULIN R 100 UNIT/ML 3ML SQ SCH ×4 (05:56→21:00)
[2021-08-21] MEDS: HEPARIN 5,000 UNIT VIAL SQ SCH ×2 (05:58→17:24)
[2021-08-21 06:18] LABS: ALBUMIN 2.4 g/dL (3.5-5.0); BILIRUBIN,TOTAL 0.2 mg/dL (0.2-1.0); CREATININE 2.2 mg/dL (0.5-1.5); PHOSPHORUS 3.8 mg/dL (2.5-4.9); TOTAL PROTEIN, SERUM 6.3 g/dL (6.0-8.3)
[2021-08-21] MEDS: HYDRALAZINE HCL 10 MG TABLET PO SCH ×2 (09:09→22:03)
[2021-08-21] MEDS: LISINOPRIL 10 MG TABLET PO SCH (09:10)
[2021-08-21] MEDS: CLONIDINE HCL 0.2 MG TABLET PO SCH ×2 (09:10→22:02)
[2021-08-21] MEDS: CARVEDILOL 25 MG TABLET PO SCH ×2 (09:10→22:03)
[2021-08-21] MEDS: LEVETIRACETAM 500 MG in 0.9%NACL 100ML 100 ML IV SCH (09:18)
[2021-08-21] MEDS: ATORVASTATIN 40 MG TABLET PO SCH (22:02)
[2021-08-22] VITALS (7 sets, daily range): BP systolic 112–169; BP diastolic 36–79
[2021-08-22] MEDS: HEPARIN 5,000 UNIT VIAL SQ SCH ×2 (05:56→18:08)
[2021-08-22] MEDS: INSULIN HUMULIN R 100 UNIT/ML 3ML SQ SCH ×4 (05:57→21:00)
[2021-08-22] MEDS: LISINOPRIL 10 MG TABLET PO SCH (08:57)
[2021-08-22] MEDS: CLONIDINE HCL 0.2 MG TABLET PO SCH ×2 (08:57→21:11)
[2021-08-22] MEDS: HYDRALAZINE HCL 10 MG TABLET PO SCH ×2 (08:57→21:10)
[2021-08-22] MEDS: CARVEDILOL 25 MG TABLET PO SCH ×2 (08:59→21:09)
[2021-08-22] MEDS: 0.9%NACL 1000ML 1,000 ML IV SCH ×2 (10:19→22:15)
[2021-08-22] MEDS: CEFTRIAXONE 1G VIAL IVP SCH (12:13)
[2021-08-22] MEDS: ATORVASTATIN 40 MG TABLET PO SCH (21:10)
[2021-08-23 03:57] VITALS: BP 118/56
[2021-08-23] MEDS: HEPARIN 5,000 UNIT VIAL SQ SCH ×2 (05:37→17:24)
[2021-08-23] MEDS: INSULIN HUMULIN R 100 UNIT/ML 3ML SQ SCH ×4 (05:51→21:00)
[2021-08-23 07:30] VITALS: BP 186/95
[2021-08-23] MEDS: CARVEDILOL 25 MG TABLET PO SCH ×2 (08:04→22:47)
[2021-08-23] MEDS: HYDRALAZINE HCL 10 MG TABLET PO SCH ×2 (08:05→22:48)
[2021-08-23] MEDS: LISINOPRIL 10 MG TABLET PO SCH (08:05)
[2021-08-23] MEDS: CLONIDINE HCL 0.2 MG TABLET PO SCH ×2 (08:06→22:48)
[2021-08-23] MEDS ORDERED: LORAZEPAM 2 MG/ML 1 ML VIAL ONE (09:16)
[2021-08-23] MEDS ORDERED: LORAZEPAM 2 MG/ML 1 ML VIAL IVP SCH (09:30)
[2021-08-23] MEDS ORDERED: LEVETIRACETAM 1,000 MG in 0.9%NACL 100ML 100 ML IV SCH (10:30)
[2021-08-23 11:00] VITALS: BP 176/86
[2021-08-23] MEDS ORDERED: FOSPHENYTOIN SODIUM 1,500 MG in 0.9%NACL 100ML 100 ML IJ SCH (11:00)
[2021-08-23] MEDS: 0.9%NACL 1000ML 1,000 ML IV SCH (11:20)
[2021-08-23] MEDS: VALPROIC ACID (AS SODIUM SALT) 500 MG in 0.9%NACL 100ML 100 ML IV SCH ×2 (11:34→22:57)
[2021-08-23] MEDS: CEFTRIAXONE 1G VIAL IVP SCH (11:36)
[2021-08-23] MEDS ORDERED: PHARMACY COMMUNICATION MISC SCH (14:00)
[2021-08-23] MEDS ORDERED: COMPOUND IV REFRIGERATED 1 EACH IVSOLN MISC PRN (15:30)
[2021-08-23 16:00] VITALS: BP 133/66
[2021-08-23 20:00] VITALS: BP 121/55
[2021-08-23] MEDS: ATORVASTATIN 40 MG TABLET PO SCH (22:48)
[2021-08-23 23:59] VITALS: BP 138/52
[2021-08-24] MEDS: FOSPHENYTOIN SODIUM 100 MG in 0.9%NACL 50ML 50 ML IJ SCH ×4 (00:46→18:07)
[2021-08-24] MEDS: 0.9%NACL 1000ML 1,000 ML IV SCH ×2 (00:47→14:00)
[2021-08-24 03:58] VITALS: BP 102/60
[2021-08-24] MEDS: INSULIN HUMULIN R 100 UNIT/ML 3ML SQ SCH ×4 (05:59→21:00)
[2021-08-24] MEDS: HEPARIN 5,000 UNIT VIAL SQ SCH ×2 (06:03→18:00)
[2021-08-24 07:30] VITALS: BP 135/57
[2021-08-24] MEDS: LEVETIRACETAM 500 MG in 0.9%NACL 100ML 100 ML IV SCH ×2 (08:54→21:06)
[2021-08-24] MEDS: CLONIDINE HCL 0.2 MG TABLET PO SCH ×2 (08:57→21:00)
[2021-08-24] MEDS: CARVEDILOL 25 MG TABLET PO SCH ×2 (08:58→21:00)
[2021-08-24] MEDS: LISINOPRIL 10 MG TABLET PO SCH (08:58)
[2021-08-24] MEDS: HYDRALAZINE HCL 10 MG TABLET PO SCH ×2 (08:59→21:00)
[2021-08-24] MEDS ORDERED: LORAZEPAM 2 MG/ML 1 ML VIAL ONE (09:18)
[2021-08-24 10:28] LABS: HEMATOCRIT 27.3 % (36-48); MEAN CORPUSCULAR HEMOGLOBIN 30.2 pg (27.0-33.0); MEAN CORPUSCULAR VOLUME 91.6 fL (79-99); RED BLOOD CELL COUNT(AUTO) 2.98 MIL/uL (4.00-5.50); RED CELL DISTRIBUTION WIDTH 11.8 % (11.0-15.5); WHITE BLOOD COUNT (AUTO) 13.2 K/uL (4.8-10.8)
[2021-08-24 10:37] LABS: CREATININE 2.3 mg/dL (0.5-1.5); MAGNESIUM 1.9 mg/dL (1.80-2.40)
[2021-08-24 11:00] VITALS: BP 143/65
[2021-08-24 11:31] LABS: HEMATOCRIT 27.5 % (36-48); MEAN CORPUSCULAR HEMOGLOBIN 30.1 pg (27.0-33.0); MEAN CORPUSCULAR VOLUME 94.2 fL (79-99); PLATELET COUNT (AUTO) 153 K/uL (130-400); RED BLOOD CELL COUNT(AUTO) 2.92 MIL/uL (4.00-5.50); RED CELL DISTRIBUTION WIDTH 11.9 % (11.0-15.5); WHITE BLOOD COUNT (AUTO) 12.4 K/uL (4.8-10.8)
[2021-08-24] MEDS: VALPROIC ACID (AS SODIUM SALT) 500 MG in 0.9%NACL 100ML 100 ML IV SCH ×2 (11:35→23:42)
[2021-08-24] MEDS: CEFTRIAXONE 1G VIAL IVP SCH (11:36)
[2021-08-24 11:50] LABS: INR 1.02 (0.85-1.15); PROTHROMBIN TIME 11.1 SEC (9.6-11.6)
[2021-08-24 11:51] LABS: PARTIAL THROMBOPLASTIN TIME 34.5 SEC (26.3-35.5)
[2021-08-24 12:11] LABS: EOSINOPHILS % (MANUAL) 2 % (1-6); LYMPHOCYTES % (MANUAL) 19 % (22-44); MONOCYTES % (MANUAL) 4 % (2-9); SEGMENTED NEUTROPHILS % 75 % (40-70)
[2021-08-24 12:12] LABS: MAN.DIFF COMMENT-IMPRESSION MANUAL DIFFERENTIAL; PLATELET MORPHOLOGY COMMENT ADEQUATE
[2021-08-24] MEDS ORDERED: PHARMACY COMMUNICATION MISC SCH (15:00)
[2021-08-24 16:00] VITALS: BP 142/71
[2021-08-24] MEDS ORDERED: COMPOUND NARC IV MISC 1 EACH IVSOLN MISC PRN (16:30)
[2021-08-24] MEDS: LACOSAMIDE 200 MG/20 ML VIAL IV SCH (18:36)
[2021-08-24] MEDS ORDERED: DEXTROSE 50%-WATER 50 ML DISP.SYRIN IV ONE (20:43)
[2021-08-24] MEDS: LORAZEPAM 2 MG/ML 1 ML VIAL IVP PRN (20:51)
[2021-08-24] MEDS ORDERED: DEXTROSE 50%-WATER 50 ML DISP.SYRIN IV PRN (21:00)
[2021-08-24] MEDS: ATORVASTATIN 40 MG TABLET PO SCH (21:00)
[2021-08-24 21:12] VITALS: BP 174/83
[2021-08-25] VITALS (22 sets, daily range): BP systolic 97–189; BP diastolic 48–87
[2021-08-25] MEDS: FOSPHENYTOIN SODIUM 100 MG in 0.9%NACL 50ML 50 ML IJ SCH ×3 (01:23→12:30)
[2021-08-25] MEDS: 0.9%NACL 1000ML 1,000 ML IV SCH (03:27)
[2021-08-25] MEDS: HEPARIN 5,000 UNIT VIAL SQ SCH (06:00)
[2021-08-25] MEDS: LACOSAMIDE 200 MG/20 ML VIAL IV SCH (06:48)
[2021-08-25] MEDS: INSULIN HUMULIN R 100 UNIT/ML 3ML SQ SCH ×2 (06:49→11:02)
[2021-08-25] MEDS: LORAZEPAM 2 MG/ML 1 ML VIAL IVP PRN ×2 (07:56→12:15)
[2021-08-25] MEDS: HYDRALAZINE HCL 10 MG TABLET PO SCH (09:00)
[2021-08-25] MEDS: CLONIDINE HCL 0.2 MG TABLET PO SCH (09:00)
[2021-08-25] MEDS: CARVEDILOL 25 MG TABLET PO SCH (09:00)
[2021-08-25] MEDS: LISINOPRIL 10 MG TABLET PO SCH (09:00)
[2021-08-25] MEDS: LEVETIRACETAM 500 MG in 0.9%NACL 100ML 100 ML IV SCH (09:00)
[2021-08-25] MEDS ORDERED: PROPOFOL 10 MG/ML 20ML VIAL IV ONE ×2 (09:29→10:31)
[2021-08-25] MEDS ORDERED: FENTANYL CITRATE PF 50 MCG/1 ML 2ML VIAL ONE (09:29)
[2021-08-25] MEDS ORDERED: LEVETIRACETAM 500 MG in 0.9%NACL 100ML 100 ML IV SCH (09:30)
[2021-08-25] MEDS ORDERED: MIDAZOLAM 100MG-0.9% NS 100ML 50 ML IV PRN (10:30)
[2021-08-25] MEDS: CEFTRIAXONE 1G VIAL IVP SCH (11:16)
[2021-08-25] MEDS ORDERED: FENTANYL 2500MCG+NS 250ML IV.SOLN IV SCH (12:00)
[2021-08-25 12:01] LABS: ABG BASE EXCESS -5.8 mmol/L (-2.0-3.0); ABG HCO3 19.5 mmol/L (21.0-28.0); ABG OXYGEN SATURATION 98.8 % (95.0-99.0); ABG PCO2 38 mmHg (32-45)
[2021-08-25] MEDS: VALPROIC ACID (AS SODIUM SALT) 500 MG in 0.9%NACL 100ML 100 ML IV SCH (12:19)
[2021-08-25] MEDS ORDERED: PROPOFOL 1000 MG/100 ML 100 ML IV ONE (12:24)
[2021-08-25] MEDS ORDERED: LORAZEPAM 2 MG/ML 1 ML VIAL IVP SCH (12:30)
[2021-08-25] MEDS ORDERED: PROPOFOL 1000 MG/100 ML 100 ML IV SCH (13:00)
== END 2021-08-25 14:42 | disposition short-term general hospital (02) | DRG 100 ==
LOC: EDH 10:49 → OBSVTOIN 15:23 → EDHIP 15:23 → 4CH 08-20 02:45 → 2DH 08-25 10:11
PROVIDERS: ADMIT Internal Medicine Infectious Disease; ATTEND Internal Medicine Infectious Disease
PROC: 5A1935Z Respiratory Ventilation, Less than 24 Consecutive Hours (ICD-10-PCS; principal; 2021-08-25)
PROC: 0BH17EZ Insertion of Endotracheal Airway into Trachea, Via Natural or Artificial Opening (ICD-10-PCS; 2021-08-25)
DX: G40.901 Epilepsy, unspecified, not intractable, with status epilepticus (principal); J96.90 Respiratory failure, unspecified, unspecified whether with hypoxia or hypercapnia; N39.0 Urinary tract infection, site not specified; I16.1 Hypertensive emergency; M62.82 Rhabdomyolysis; N18.4 Chronic kidney disease, stage 4 (severe); E87.4 Mixed disorder of acid-base balance; G93.40 Encephalopathy, unspecified; F05 Delirium due to known physiological condition; Z68.41 Body mass index [BMI] 40.0-44.9, adult; N17.9 Acute kidney failure, unspecified; E87.5 Hyperkalemia; E11.22 Type 2 diabetes mellitus with diabetic chronic kidney disease; I12.9 Hypertensive chronic kidney disease with stage 1 through stage 4 chronic kidney disease, or unspecified chronic kidney disease; E66.01 Morbid (severe) obesity due to excess calories; Z20.822 Contact with and (suspected) exposure to COVID-19; E11.51 Type 2 diabetes mellitus with diabetic peripheral angiopathy without gangrene; I25.10 Atherosclerotic heart disease of native coronary artery without angina pectoris; R53.81 Other malaise; D63.1 Anemia in chronic kidney disease; B96.20 Unspecified Escherichia coli [E. coli] as the cause of diseases classified elsewhere; E78.00 Pure hypercholesterolemia, unspecified; H55.00 Unspecified nystagmus; Z89.432 Acquired absence of left foot; Z83.3 Family history of diabetes mellitus
CPT/HCPCS: 31500; 36415; 36600; 70450; 70544; 70551; 71045; 80048; 80053; 80177; 80185; 80305; 81001; 82009; 82435; 82550; 82803; 82947; 82948; 83605; 83690; 83735; 83930; 84100; 84132; 84295; 84484; 85018; 85025; 85027; 85610; 85730; 87040; 87077; 87088; 87186; 87635; 87804; 87880; 93005; 94002; 97039; 99291; C9803; G0378; G0481; J0330; J0696; J1644; J1815; J1953; J2060; J2405; J2704; J3010; J3490; J7030; J7070; Q2009